=== PATIENT | male | born 1970 | race Caucasian/White ===

== ENCOUNTER 2024-10-30 04:21 | Emergency (ER) | payer OTHER, SELFPAY ==
--- NOTE | ~2024-10-30 | XR_ITS ---
Portable chest x-ray Comparison: None Clinical History: Syncope Findings: Lungs are clear, without focal consolidation or pleural effusion. Cardiomediastinal silho uette is unremarkable. Bones and soft tissues are unremarkable. Impression: Normal chest. Reviewed, dictated and finalized at location . [employer]ESS SALES EXPERT Impression: Normal chest.
[2024-10-30 04:18] VITALS: BP 90/46; PULSE 86; RESP 15; TEMP 37.7; O2SAT 94
--- NOTE | 2024-10-30 04:25 | ECG_ITS ---
Test Date: 2024-10-30 04:24:58 Measurements Intervals [place] Rate: 81 P: 55 [place]: 166 QRS: 31 QRSD: 93 T: 44 QT: 340 QTc: 397 Interpretive Statements SINUS RHYTHM POSSIBLE LEFT ATRIAL ENLARGEMENT [-0.1mV P WAVE IN V1/V2] No previous ECG available for comparison Electronically Signed On 10-30-2024 22:50:38 [employer]ESSOR [employer] by Chris Rodas M.D.
[2024-10-30 04:35] LABS: Basophils Percent Auto 0.4 % (0.2-1.2); Eosinophils Absolute Auto 0.1 K/mm3 (0-0.3); Eosinophils Percent Auto 1.1 % (0-4.4); Hematocrit 42.7 % (42.0-52.0); Hemoglobin 14.3 g/dL (14.0-18.0); Immature Granulocyte Absolute 0.02 K/mm3 (0.00-0.031); Immature Granulocyte Percent A 0.4 % (0-0.5); Lymphocytes Absolute Auto 1.12 K/mm3 (0.9-3.2); Lymphocytes Percent Auto 19.8 % (18.3-44.2); Mean Corpuscular HGB Conc 33.5 g/dl (32-36); Mean Corpuscular Hemoglobin 31.2 pg (26-34); Mean Corpuscular Volume 93.2 fl (80-100); Mean Platelet Volume 9.9 fl (7.4-10.4); Monocytes Absolute Auto 0.8 K/mm3 (0.1-0.6); Neutrophils Absolute Auto 3.7 K/mm3 (1.3-6.7); Neutrophils Percent Auto 64.3 % (45.5-73.1); Platelet Count Result 229 k/mm3 (150-375); Red Blood Count 4.58 M/mm3 (4.6-6.20); Red Cell Distribution Width 12.7 % (11.5-14.5); White Blood Count 5.7 K/mm3 (4.5-10.0)
[2024-10-30] MEDS: KETOROLAC 15 MG/ML VIAL (*BKC) IV PUSH (04:44)
[2024-10-30 04:49] LABS: Alanine Aminotransferase 60 U/L (6-50); Albumin Level 3.9 g/dL (3.5-5.1); Alkaline Phosphatase 72 U/L (38-126); Anion Gap 2 mmol/L (4-12); Aspartate Amino Transferase 56 U/L (17-59); Bilirubin,Total 0.5 mg/dL (0.2-1.3); Blood Urea Nitrogen 11 mg/dL (9-20); Calcium 8.3 mg/dL (8.4-10.2); Carbon Dioxide 28 mmol/L (22-30); Chloride 104 mmol/L (98-107); Estimated CRCL calculation 52 ml/min; Estimated Glomerular Filt Rate 53; Glucose 139 mg/dL (65-110); Potassium 4.2 mmol/L (3.4-5.0); Sodium 134 mmol/L (137-145)
[2024-10-30] MEDS: SODIUM CHLORIDE 0.9% IV 1,000 ML 999 ML IV CONT ×2 (04:51)
[2024-10-30] MEDS: SODIUM CHLORIDE 0.9% IV 200 ML 999 ML IV CONT (04:52)
--- NOTE | 2024-10-30 05:03 | ED.GENADULT ---
HPI - General Adult General Chief complaint: Syncope Stated complaint: UNWITNESSED SYNCOPAL EPISODE, +LOC Time Seen by Provider: 10/30/24 04:30 History of Present Illness HPI narrative: This is a 54-year-old male presenting ED with chief complaint of syncope. Patient has been having a febrile illness over the last 2 days. He has had decreased oral intake and loose stools. Patient got up to go to the restroom and fainted. His family heard a thud from the other room and found him on the ground. That time he had soiled his pants. He quickly returned to baseline mental status but an ambulance was called and he was brought to the hospital. Patient says he has been feeling ill for 3 days. Two days ago he developed a fever And body aches. No chest pain difficulty breathing abdominal pain nausea or vomiting. No sick contacts at home. He has had his flu an COVID shot Related Data Allergies Allergy/AdvReac Type Severity Reaction Status Date / Time No Known Allergies Allergy Verified 10/30/24 04:29 Exam Narrative: APPEARANCE: No apparent distress. Head: atraumatic. EYES: EOMI, NOSE: Atraumatic NECK: Trachea midline RESPIRATORY: No increased rate of breathing clear auscultation CARDIOVASCULAR: RRR, no peripheral edema ABDOMINAL: Non-distended soft nontender MUSCULOSKELETAl: No obvious deformities NEURO: Alert. Moving 4/4 extremities SKIN:: Warm, dry. Normal color PSYCHIATRIC: Normal affect Course Vital Signs Vital signs: Vital Signs Temperature 99.9 F H 10/30/24 04:18 Pulse Rate 86 10/30/24 04:18 Respiratory Rate 15 10/30/24 04:18 Blood Pressure 90/46 L 10/30/24 04:18 Pulse Oximetry 94 10/30/24 04:18 Oxygen Delivery Room Air 10/30/24 04:18 Temperature 99.9 F H 10/30/24 04:18 Pulse Rate 95 10/30/24 07:01 Respiratory Rate 15 10/30/24 07:01 Blood Pressure 134/88 10/30/24 07:01 Pulse Oximetry 97 10/30/24 07:01 Oxygen Delivery Room Air 10/30/24 04:18 Medical Decision Making [facility] Narrative Medical decision making narrative: -Course: 54-year-old male presenting with syncopal episode in the setting of a febrile illness. Patient given fluid resuscitation with improvement blood pressure. Given Toradol for fevers. Workup significant for influenza A. Patient has had symptoms for 72 hours is not a candidate for Tamiflu. On re-evaluation patient is feeling much better. He is comfortable going home at this time. Patient will be discharged follow-up with primary care physician. Given return precautions. -DDX includes but is not limited to: Dehydration, viral illness, sepsis, UTI, dehydration, pneumonia, flu, COVID -Independent interpretation of studies: labs and imaging reviewed Independent EKG interpretation: Rhythm [sinus], Rate [81], [place] -[normal], [place] -[normal], QRS [narrow], QTC [normal], T waves -[negative for concerning inversions], ST Segments - [Negative for concerning elevations] Final interpretations: [Normal Sinus Rhythm] -Interventions: 3 L normal saline, Toradol -Shared decision making / Disposition: discharge Vital Signs Vital Signs: Vital Signs Temperature 99.9 F H 10/30/24 04:18 Pulse Rate 86 10/30/24 04:18 Respiratory Rate 15 10/30/24 04:18 Blood Pressure 90/46 L 10/30/24 04:18 Pulse Oximetry 94 10/30/24 04:18 Oxygen Delivery Room Air 10/30/24 04:18 Temperature 99.9 F H 10/30/24 04:18 Pulse Rate 95 10/30/24 07:01 Respiratory Rate 15 10/30/24 07:01 Blood Pressure 134/88 10/30/24 07:01 Pulse Oximetry 97 10/30/24 07:01 Oxygen Delivery Room Air 10/30/24 04:18 Lab Data 10/30/24 04:28 10/30/24 04:28 Labs: Lab Results 10/30/24 Range/Units 04:28 WBC 5.7 (4.5-10.0) K/mm3 RBC 4.58 L (4.6-6.20) M/mm3 Hgb 14.3 (14.0-18.0) g/dL Hct 42.7 (42.0-52.0) % MCV 93.2 (80-100) fl MCH 31.2 (26-34) pg MCHC 33.5 (32-36) g/dl RDW 12.7 (11.5-14.5) % Plt Count 229 (150-375) k/mm3 MPV 9.9 (7.4-10.4) fl Immature Gran % (Auto) 0.4 (0-0.5) % Neut % (Auto) 64.3 (45.5-73.1) % Lymph % (Auto) 19.8 (18.3-44.2) % Bertie % (Auto) 14.0 H (2.6-8.5) % Eos % (Auto) 1.1 (0-4.4) % Baso % (Auto) 0.4 (0.2-1.2) % Lymph # (Auto) 1.12 (0.9-3.2) K/mm3 Bertie # (Auto) 0.8 H (0.1-0.6) K/mm3 Eos # (Auto) 0.1 (0-0.3) K/mm3 Baso # (Auto) 0.0 (0.0-0.1) K/mm3 Abs Immat Gran (auto) 0.02 (0.00-0.031) K/mm3 Absolute Neuts (auto) 3.7 (1.3-6.7) K/mm3 Absolute Nucleated RBC 0.000 (0.0-0.012) K/mm3 Nucleated RBC % 0.0 (0.0-0.2) % Sodium 134 L (137-145) mmol/L Potassium 4.2 (3.4-5.0) mmol/L Chloride 104 (98-107) mmol/L Carbon Dioxide 28 (22-30) mmol/L Anion Gap 2 L (4-12) mmol/L BUN 11 (9-20) mg/dL Creatinine 1.40 H (0.7-1.3) mg/dL Estim Creat Clear Calc 52 ml/min Estimated GFR 53 L (59 - ) Glucose 139 H (65-110) mg/dL Calcium 8.3 L (8.4-10.2) mg/dL Total Bilirubin 0.5 (0.2-1.3) mg/dL AST 56 (17-59) U/L ALT 60 H (6-50) U/L Alkaline Phosphatase 72 (38-126) U/L Total Protein 6.0 L (6.3-8.2) g/dL Albumin 3.9 (3.5-5.1) g/dL Influenza A (RT-PCR) Positive A (Negative) Influenza B (RT-PCR) Negative (Negative) RSV (RT-PCR) Negative (Negative) SARS-CoV-2 RNA (RT-PCR) Negative (Negative) Discharge Plan Discharge Clinical Impression: Syncope due to orthostatic hypotension, Flu Patient Disposition: Home, Self-Care Condition: Stable Instructions: Antibiotic Form, Syncope (DC), Influenza (DC) Additional Instructions: You have the flu. Please make sure you are drinking plenty of fluids. Use Motrin and Tylenol for fevers and body aches. Please be careful when he stand up if your prone to fainting. You can return to the ED at any time if you develop chest pain difficulty breathing feel your condition is getting worse. Patient Language: Luxembourgish
[2024-10-30 05:11] LABS: Influenza A QL RT-PCR Positive (Negative); Influenza B QL RT-PCR Negative (Negative); RSV RNA, RT-PCR Negative (Negative); SARS-CoV-2 RNA PCR Negative (Negative)
[2024-10-30 05:46] VITALS: BP 120/72; PULSE 88; RESP 15; O2SAT 94
[2024-10-30 07:01] VITALS: BP 134/88; PULSE 95; RESP 15; O2SAT 97
[2024-10-30 07:49] VITALS: BP 128/73; PULSE 90; RESP 20; O2SAT 95
--- OUTSIDE RECORDS SUMMARY | 2024-11-06 03:33 | XMS_ITS | Encounter Summary ---
Author Organization [facility] Address [address] [place] [address] Phone Care Team Providers Care Handmade Tile Artist Name Role Phone Redd Bond MD Primary Care Provider Reason for Visit * Reason Comments Physical Encounter Details Date Type Department Care Team (Late st Contact Info) Description 05/18/2012 9:20 AM PDT Office Visit [facility] [address] [facility] [address] [place] [phone] Redd Bond MD [address] [facility] FLO[address] [place], [place] [id number] Well adult exam; History of syncope; Right knee pain Social History Tobacco Use Types Packs/Day Years Used Date Smoking Tobacco: Never Alcohol Use Standard Drinks/Week Comments Yes 0 (1 standard drink = 0.6 oz pur e alcohol) social. Sex and Gender Information Value Date Recorded Sex Assigned at Not on file Legal Sex Male 11:49 PM PDT Gender Identity Not on file Sexual Orientation Not on file documented as of this encounter Last Filed Vital Signs Vital Sign Reading Time Taken Comments Blood Pressure 123/68 05/18/2012 10:08 AM PDT Pulse 72 05/18/2012 10:08 AM PDT Temperature 36.9 ??C (98.4 ??F) 05/18/2012 10:08 AM P DT Respiratory Rate - - Oxygen Saturation - - Inhaled Oxygen Concentration - - Weight 64.4 kg (142 lb) 05/18/2012 10:08 AM PDT Height 170.2 cm (5' 7 ) 05/18/2012 10:08 AM PDT Body Mass Index 22.24 05/18/2012 10:08 AM PDT documented in this encounter Progress Notes * Redd Bond MD - 05/18/2012 10:59 AM PDT Patient ID: David Fairchild is a 42 year old male Chief Complaint: Chief Complaint Patient presents with ??? Physical HPI: 1m ago fainted at work. Had a busy weekend just prior. Had syncope.. This occurred 4w ago.. Eval.. bp was ok.. Neg jean-baptiste. hasnt occurred since. No chest pain prior. No palpitations. r knee pain with running for several years. No buckling. Gets sore.. No swelling. ROS: General ROS: negative Ophthalmic ROS: negative ENT ROS: negative Respiratory ROS: no cough, shortness of breath, or wheezing Cardiovascular ROS: no chest pain or dyspnea on exertion Gastrointestinal ROS: no abdominal pain, change in bowel habits, or black or bloody stools Genito-Urinary ROS: no dysuria, trouble voiding, or hematuria Musculoskeletal ROS: negative Dermatological ROS: negative Neurological ROS: no TIA or stroke symptoms Psychological ROS: negative No outpatient prescriptions prior to encounter No Known Allergies Past Medical History Diagnosis Date ??? NO SIGNIFICANT MEDICAL PROBLEMS Past Surgical History Procedure Date ??? Past surgical history - none reported History Social History ??? Marital Status: N/A Spouse Name: N/A Number of Children: N/A ??? Years of Education: N/A Occupational History ??? Not on file. Social History Main Topics ??? Smoking status: Never Smoker ??? Smokeless tobacco: Not on file ??? Alcohol Use: Yes social. ??? Drug Use: No ??? Sexually Active: Not on file PHYSICAL EXAM: BP 123/68 Pulse 72 Temp(Src) 98.4 ??F (36.9 ??C) (Oral) Ht 5' 7 (1.702 m) Wt 142 lb (64.411 kg) BMI 22.24 kg/m2 General appearance - alert, well appearing, and in no distress Mental status - alert, oriented to person, place, and time Eyes - pupils equal and reactive, extraocular eye movements intact Ears - bilateral TM's and external ear canals normal Nose - normal and patent, no erythema, discharge or polyps Mouth - mucous membranes moist, pharynx normal without lesions Neck - supple, no significant adenopathy Lymphatics - no palpable lymphadenopathy, no hepatosplenomegaly Chest - clear to auscultation, no wheezes, rales or rhonchi, symmetric air entry Heart - normal rate, regular rhythm, normal S1, S2, no murmurs, rubs, clicks or gallops Abdomen - soft, nontender, nondistended, no masses or organomegaly Male - no penile lesions or discharge, no testicular masses or tenderness, no hernias Back exam - full range of motion, no tenderness, palpable spasm or pain on motion Neurological - alert, oriented, normal speech, no focal findings or movement disorder noted Musculoskeletal - no joint tenderness, deformity or swelling Extremities - peripheral pulses normal, no pedal edema, no clubbing or cyanosis Skin - normal coloration and turgor, no rashes, no suspicious skin lesions noted Impression and Plan: Diagnoses and associated orders for this visit: Well adult exam - CBC with Differential - Metabolic Panel, Comprehensive (CMP) - Lipid Panel - Thyroid Stimulating Hormone (TSH) Reflex to Free T4 - Urinalysis w/ Microscopy - EKG, 12 LEADS W/INTERPRETATION AND REPORT - XRAY Knee 2 Views Ap Lateral Right History of syncope - CBC with Differential - Metabolic Panel, Comprehensive (CMP) - Lipid Panel - Thyroid Stimulating Hormone (TSH) Reflex to Free T4 - Urinalysis w/ Microscopy - EKG, 12 LEADS W/INTERPRETATION AND REPORT - XRAY Knee 2 Views Ap Lateral Right Right knee pain - CBC with Differential - Metabolic Panel, Comprehensive (CMP) - Lipid Panel - Thyroid Stimulating Hormone (TSH) Reflex to Free T4 - Urinalysis w/ Microscopy - EKG, 12 LEADS W/INTERPRETATION AND REPORT - XRAY Knee 2 Views Ap Lateral Right nl ekg Instructed on monthly self testicular exam documented in this encounter Plan of Treatment Scheduled Orders Name Type Priority Associated Diagnoses Orde r Schedule XRAY KNEE 2 VIEWS AP LATERAL RIGHT Imaging Routine Well adult exam History of syncope Right knee pain Ordered: 05/18/2012 documented as of this encounter Procedures Procedure Name Priority Date/Time Associated Diagnosis Comments THYROID STIMULATING HORMONE (TSH) REFLEX ON ABNORMAL TO FREE T4 Routine 05/18/2012 11:38 AM PDT Well adult exam History of syncope Right knee pain CBC WITH DIFFERENTIAL Routine 05/18/2012 11:38 AM PDT Well adult exam History of syncope Right knee pain URINALYSIS W/ MICROSCOPY Routine 05/18/2012 11:38 AM PDT Well adult exam History of syncope Right knee pain LIPID PANEL Routine 05/18/2012 11:38 AM PDT Well adult exam History of syncope Right knee pain METABOLIC PANEL, COMPREHENSIVE (CMP) Routine 05/18/2012 11:38 AM PDT Well adult exam History of syncope Right knee pain documented in this encounter Results * URINALYSIS W/ MICROSCOPY (05/18/2012 11:38 AM PDT) Specific [place], UA 1.011 1.005 - 1.030 [facility] pH, UA 7.0 5.0 - 7.5 [facility] Color, UA Yellow Yellow [facility] Appearance, UA Clear Clear [facility] Leukocyte Esterase, UA Negative Negative [facility] Protein, UA Negative Negative/Tra ce [facility] Glucose, UA Negative Negative [facility] Ketones, UA Negative Negative [facility] Blood, UA Negative Negative [facility] Bilirubin, UA Negative Negative [facility] Urobilinogen, Semi-Qn 0.2 0.0 - 1.9 mg/dL [facility] Nitrite, UA Negative Negative [facility] Microscopic Examination Comment [facility] Comment: Microscopic follows if indicated. Microscopic Examination See below: [facility] Urine (URINE) 05/18/2012 11: 38 AM PDT 05/19/2012 5:41 AM PDT Narrative [facility] - 05/19/2012 1:09 PM PDT PATIENT WAS FASTING [id number] test performed at [facility] [address], [place], [address] Facilty Phone number: Facility Director name:Priscila Posada MD us Redd Bond MD URINALYSIS ORDERABLES Final Res ult [facility] [address] [place] [address] * THYROID STIMULATING HORMONE (TSH) REFLEX ON ABNORMAL TO FREE T4 (05/18/2012 11:38 AM PDT) TSH 3.070 0.450 - 4.500 uIU/mL [facility] Blood (BLOOD) 05/18/2012 11: 38 AM PDT 05/19/2012 5:41 AM PDT Narrative [facility] - 05/19/2012 11:06 AM PDT PATIENT WAS FASTING [id number] test performed at [facility] [address], [place], [address] Facilty Phone number: Facility Director name:Priscila Posada MD Redd Bond MD CHEMISTRY ORDERABLES Final Resu lt [facility] [address] [place] [address] * (ABNORMAL) LIPID PANEL (05/18/2012 11:38 AM PDT) Cholesterol 246(H) 100 - 199 mg/dL [facility] Triglycerides 74 0 - 149 mg/dL [facility] HDL Cholesterol 77 >39 mg/dL [facility] Comment: According to ATP-III Guidelines, HDL-C >59 mg/dL is considered a negative risk factor for CHD. VLDL Cholesterol 15 5 - 40 mg/dL [facility] LDL Calculated 154(H) 0 - 99 mg/dL [facility] Cholesterol/HDL Ratio 3.2 0.0 - 5.0 ratio units [facility] Blood, Venous (BLOOD) 05/18/2012 11:38 AM PDT 05/19/2012 5:41 AM PDT Narrative [facility] - 05/19/2012 11:06 AM PDT PATIENT WAS FASTING [id number] test performed at [facility] [address], [place], [address] Facilty Phone number: Facility Director name:Priscial Posada MD Redd Bond MD CHEMISTRY ORDERABLES Final Resu lt Performing Organization Address [facility]/ZIP Co de Phone Number [facility] [address] [facility] [address] [place] [address] * (ABNORMAL) METABOLIC PANEL, COMPREHENSIVE (CMP) (05/18/2012 11:38 AM PDT) Glucose 90 65 - 99 mg/dL [facility] Urea Nitrogen 11 6 - 24 mg/dL [facility] Creatinine 1.01 0.76 - 1.27 mg/dL [facility] eGFR 93 >59 mL/min/1. 73 [facility] eGFR AfricanAmerican 107 >59 mL/min/1. 73 [facility] BUN/Creatinine Ratio 11 9 - 20 [facility] Sodium 142 134 - 144 mmol/L [facility] Potassium 5.3(H) 3.5 - 5.2 mmol/L [facility] Chloride 101 97 - 108 mmol/L [facility] Carbon Dioxide 26 20 - 32 mmol/L [facility] Calcium, Serum 9.7 8.7 - 10.2 mg/dL [facility] Total Protein 7.1 6.0 - 8.5 g/dL [facility] Albumin 4.5 3.5 - 5.5 g/dL [facility] Globulin 2.6 1.5 - 4.5 g/dL [facility] A/G Ratio 1.7 1.1 - 2.5 [facility] Bilirubin, Total 0.6 0.0 - 1.2 mg/dL [facility] Alkaline Phosphatase 61 25 - 150 IU/L [facility] AST 22 0 - 40 IU/L [facility] ALT 24 0 - 55 IU/L [facility] Blood (BLOOD) 05/18/2012 11: 38 AM PDT 05/19/2012 5:41 AM PDT Narrative [facility] - 05/19/2012 11:06 AM PDT PATIENT WAS FASTING [id number] test performed at [facility] [place] [address] [facility] [address] [address], [place], [address] Facilty Phone number: Facility Director name:Priscila Posada MD us Redd Bond MD CHEMISTRY ORDERABLES Final Resu lt Performing Organization Address City/[facility]/ZIP Co de Phone Number [facility] [address] [place] [address] * CBC WITH DIFFERENTIAL (05/18/2012 11:38 AM PDT) WBC 5.6 4.0 - 10.5 x10E3/uL [facility] RBC 5.10 4.14 - 5.80 x10E6/uL [facility] Hemoglobin 15.5 12.6 - 17.7 g/dL [facility] Hematocrit 46.9 37.5 - 51.0 % [facility] MCV 92 79 - 97 fL [facility] MCH 30.4 26.6 - 33.0 pg [facility] MCHC 33.0 31.5 - 35.7 g/dL [facility] RDW 13.3 12.3 - 15.4 % [facility] Platelet Count 253 140 - 415 x10E3/uL [facility] Polys 44 40 - 74 % [facility] Lymphocytes 43 14 - 46 % [facility] Monocytes 10 4 - 13 % [facility] Eosinophils 2 0 - 7 % [facility] Basophils 1 0 - 3 % [facility] Immature Cells (*) [facility] Polys, Absolute 2.4 1.8 - 7.8 x10E3/uL [facility] Lymphocytes, Absolute 2.5 0.7 - 4.5 x10E3/uL [facility] Monocytes, Absolute 0.5 0.1 - 1.0 x10E3/uL [facility] Eosinophils, Absolute 0.1 0.0 - 0.4 x10E3/uL [facility] Basophils, Absolute 0.0 0.0 - 0.2 x10E3/uL [facility] Immature Granulocytes 0 0 - 2 % [facility] Immature Granulocytes, Absolute 0.0 0.0 - 0.1 x10E3/uL [facility] NRBC (*) [facility] Comments (*) [facility] Blood, Venous (BLOOD) 05/18/2012 11:38 AM PDT 05/19/2012 5:41 AM PDT Narrative [facility] - 05/19/2012 9:07 AM PDT PATIENT WAS FASTING [id number] test performed at [facility] [address], [place], [address] Facilty Phone number: Facility Director name:Priscila Posada MD (*) RESULT NOT AVAILABLE: Immature Cells, NRBC, Hematology Comments: us Redd Bond MD HEMATOLOGY ORDERABLES Final Res ult [facility] [address] [place] [address] documented in this encounter Visit Diagnoses Diagnosis Well adult exam Routine general medical examination at a health care facility History of syncope Personal history of other specified diseases Right knee pain Pain in joint, lower leg documented in this encounter Care Teams Handmade Tile Artist Relationship Specialty Start Date End Date Redd Bond MD [address] [facility], [address] FLOOR [address] [place], [place] [phone] PCP - General 04/14/12 documented as of this encounter
--- OUTSIDE RECORDS SUMMARY | 2024-11-06 03:33 | XMS_ITS | Encounter Summary ---
Author Organization [facility] Address [address] [address] Care Team Providers Care Painting Department Supervisor Name Role Phone Petrona Felix MD Primary Care Pr ovider Reason for Visit * Reason Onset Date Comments Results 10/11/2022 Encounter Details Date Type Department Care Team (Late st Contact Info) Description 10/11/2022 Telephone [facility] Internal Medicine [place] [address] [place] [phone] Petrona Felix MD [address] [place] [address] Results Social History Tobacco Use Types Packs/Day Years Used Date Smoking Tobacco: Never Smokeless Tobacco: Never Alcohol Use Standard Drinks/Week Comments Yes 10 (1 standard drink = 0.6 oz pu re alcohol) Sex and Gender Information Value Date Recorded Sex Assigned at Not on file Legal Sex Male 3:09 AM PDT Gender Identity Not on file Sexual Orientation Not on file documented as of this encounter Miscellaneous Notes * Telephone Encounter - Dee Araiza - 10/11/2022 11:40 AM PST Called and spoke to patient Scheduled virtual 10/18/2022 9:40 AM Petrona Felix MD Electronically signed by: Dee Araiza 10/11/2022 11:41 AM PST * Telephone Encounter - Dee Araiza - 10/11/2022 11:39 AM PST ----- Message from Petrona Felix MD sent at 10/11/2022 6:45 AM PST ----- Please schedule an appointment - Video visit through zoom if possible to discuss the results of thehigh cholesterol You have mild allergies to hazelnut and chadian thistle and olive tress. Please take over the counter medication documented in this encounter Plan of Treatment Not on file documented as of this encounter Visit Diagnoses Not on filedocumented in this encounter Additional Health Concerns Assessment Noted Time PHQ-9 Depression Total Score: 4 10/01/20 11:36 AM PST documented as of this encounter Care Teams Painting Department Supervisor Relationship Specialty Start Date End Date Petrona Felix MD [address] [place] [address] PCP - General Family Medicine 10/01/22 documented as of this encounter
--- OUTSIDE RECORDS SUMMARY | 2024-11-06 03:33 | XMS_ITS | Encounter Summary ---
Author Organization [facility] Address [address] [address] Care Team Providers Care Mixer Operator Vacuum Pan Salt Name Role Phone Petrona Felix MD Primary Care Pr ovider Encounter Details Date Type Department Care Team (Late st Contact Info) Description 10/11/2022 Infectious Risk Screen [facility] Internal Medicine [address] [phone] Social History Tobacco Use Types Packs/Day Years [...] on file documented as of this encounter Plan of Treatment Not on file documented as of this encounter Visit Diagnoses Not on filedocumented in this encounter Additional Health Concerns Assessment Noted Time PHQ-9 Depression Total Score: 4 10/01/20 22 11:36 AM PST documented as of this encounter Care Teams Mixer Operator Vacuum Pan Salt Relationship Specialty Start Date End Date Petrona Felix MD [address] [place] [address] PCP - General Family Medicine 10/01/22 documented as of this encounter
--- OUTSIDE RECORDS SUMMARY | 2024-11-06 03:33 | XMS_ITS | Encounter Summary ---
Author Organization [facility] Address [address] [address] Care Team Providers Care Tanning Consultant Name Role Phone Petrona Felix MD Primary Care Pr ovider Reason for Visit * Reason Comments Annual Exam Encounter Details Date Type Department Care Team (Late st Contact Info) Description 12/20/2023 9:20 AM PST Office Visit [facility] [place] [address] [phone] Petrona Felix MD [address] [place] [address] Annual physical exam (Primary Dx); Vitamin D deficiency; Hypercholesterolemia; Chronic cough Social History Tobacco Use Types Packs/Day Years Used Date Smoking Tobacco: Never Smokeless Tobacco: Never Alcohol Use Standard Drinks/Week Comments Yes 10 (1 standard drink = 0.6 oz pu re alcohol) PHQ-2 Answer Date Recorded PHQ-2 Total Score 0 12/19/2023 Alcohol Use History Answer Date Recorde d Alcohol use Yes 02/04/2023 Alcohol/week (standard drinks) 10 0 02/04/2023 Sex and Gender Information Value Date Recorded Sex Assigned at Not on file Legal Sex Male 3:09 AM PDT Gender Identity Not on file Sexual Orientation Not on file documented as of this encounter Last Filed Vital Signs Vital Sign Reading Time Taken Comments Blood Pressure 116/78 12/20/2023 9:19 AM PST Pulse 102 12/20/2023 9:19 AM PST Temperature - - Respiratory Rate - - Oxygen Saturation 98% 12/20/2023 9:19 AM PST Inhaled Oxygen Concentration - - Weight 74.8 kg (165 lb) 12/20/2023 9:19 AM PST Height 169 cm (5' 6.54 ) 12/20/2023 9:19 AM PST Body Mass Index 26.21 12/20/2023 9:19 AM PST documented in this encounter Progress Notes * Petrona Felix MD - 12/20/2023 9:[address] [facility] [place] - HISTORY AND PHYSICAL EXAM Patient Name: David Fairchild (Tom) Age: 53 y.o. : 1970 Author: Petrona Felix MD Date of Encounter: 12/20/2023 CHIEF COMPLAINT: David Fairchild (Tom) is a 53 y.o. male who presents for annual physical. HPI: David Fairchild (Tom) is a 53 y.o. male who presents with Annual Exam ASSESSMENT & PLAN: 1. Annual physical exam (Primary) - Basic Metabolic Panel; Future - CBC with Differential; Future - Hemoglobin A1C; Future - Hepatic Function Panel; Future - Lipid Panel; Future - Phosphorus; Future - TSH; Future - Urinalysis With Microscopic; Future; Expected date: 12/20/2023 - Culture, Urine; Future; Expected date: 12/20/2023 - Vitamin D, Deficiency Screen (25-Hydroxy); Future - PSA, Screen; Future - Testosterone, Total and Free; Future - HIV AG/AB, 4th Gen, Reflex; Future - Occult Blood, Fecal Immunochemical Test (FIT); Future; Expected date: 12/20/2023 2. Vitamin D deficiency - Basic Metabolic Panel; Future - CBC with Differential; Future - Hemoglobin A1C; Future - Hepatic Function Panel; Future - Lipid Panel; Future - Phosphorus; Future - TSH; Future - Urinalysis With Microscopic; Future; Expected date: 12/20/2023 - Culture, Urine; Future; Expected date: 12/20/2023 - Vitamin D, Deficiency Screen (25-Hydroxy); Future - PSA, Screen; Future - Testosterone, Total and Free; Future - HIV AG/AB, 4th Gen, Reflex; Future - Occult Blood, Fecal Immunochemical Test (FIT); Future; Expected date: 12/20/2023 3. Hypercholesterolemia - Basic Metabolic Panel; Future - CBC with Differential; Future - Hemoglobin A1C; Future - Hepatic Function Panel; Future - Lipid Panel; Future - Phosphorus; Future - TSH; Future - Urinalysis With Microscopic; Future; Expected date: 12/20/2023 - Culture, Urine; Future; Expected date: 12/20/2023 - Vitamin D, Deficiency Screen (25-Hydroxy); Future - PSA, Screen; Future - Testosterone, Total and Free; Future - HIV AG/AB, 4th Gen, Reflex; Future - Occult Blood, Fecal Immunochemical Test (FIT); Future; Expected date: 12/20/2023 4. Chronic cough Assessment & Plan: After infection in Dec Will keep me posted is worsening FOLLOW UP: After care instructions & AVS given. No follow-ups on file. Sooner if necessary, or as discussed. Care instructions and warning signs were discussed. Medications per orders. Side effects discussed.All pertinent labs, studies & exam findings were reviewed today and discussed with patient. Patient expresses understanding of assessment & plan. All questions answered. ACTIVE PROBLEMS: Patient Active Problem List Diagnosis Depression Annual physical exam Postnasal drip Deviated septum Snoring Hypercholesterolemia Vitamin D deficiency Positive allergy test Cough PAST MEDICAL HISTORY: He has a past medical history of Depression. PAST SURGICAL HISTORY: He has no past surgical history on file. FAMILY HISTORY: His family history includes Hypertension in his father; Stroke in his father. SOCIAL HISTORY: reports that he has never smoked. He has never used smokeless tobacco. He reports current alcohol use of about 10.0 standard drinks of alcohol per week. MEDICATIONS: No outpatient medications prior to visit. No facility-administered medications prior to visit. Patient's Medications No medications on file : ALLERGIES: Food LOREE MAINTENANCE: Preventative Services TOPIC LAST DONE NEXT DUE Cologuard 02/07/1990 Fit 02/07/1990 Ct Colonography 02/07/1990 Hepatitis C Screening 10/07/2022 Human Immunodeficiency Virus (Hiv) Screening 02/07/1987 Vaccine: Influenza 08/17/2023 Sigmoidoscopy 02/07/1990 Colonoscopy 02/07/1990 Covid-19 Vaccine 08/17/2023 Vaccine: Dtap/Tdap/Td 02/07/1991 Vaccine: Zoster 02/07/2022 Colorectal Combination Topic 02/07/1990 IMMUNIZATIONS: Immunization History Administered Date(s) Administered COVID-19 (MODERNA) 12 YRS+, 0.5 ML (2022) 08/17/2023 COVID-19 (MODERNA) MONOVALENT 12 YRS+ 02/13/2021, 03/13/2021, 10/07/2021 INFLUENZA PF, QUADRIVALENT 09/04/2021 INFLUENZA W/PRES QUADRIVALENT 08/04/2020 CARE TEAM: Patient Care Team: Petrona Felix MD as PCP - General (Family Medicine) REVIEWED LAB(S): No results found for this or any previous visit (from the past 1344 hour(s)). REVIEW OF SYMPTOMS: 12/19/2023 8:48 PM Date of Last Screening PHQ-2 Total Score 0 [place] PHQ-2 Total Negative @REVFS(896:1:1) PHYSICAL EXAM: VITAL SIGNS: BP 116/78 Pulse 102 Ht 1.69 m (5' 6.54 ) Wt 74.8 kg (165 lb) SpO2 98% BMI 26.21 kg/m?? Blood pressure, heart rate and temperature reviewed. General: Well developed, well nourished male in no distress. Appears oriented x 4. Insight and judgment intact. HEENT: Normocephalic, ears and nose - atraumatic. No lid-lag. No pale or injected conjunctiva. EOMI, PERRLA. No cervical adenopathy. Neck: Full range of motion with flexion and extension of the cervical spine. No JVD or adenopathy. Thyroid without enlargement, tenderness or masses. Lungs: Clear to auscultation and percussion. No wheezes, rales or rhonchi. Normal respiratory effort. Cardiac: Regular rate and rhythm without murmurs. Peripheral Pulses: 3/4 in the carotids and dorsalis pedis vessels. No carotid bruits. Abdomen: Soft, nontender, nondistended with positive active bowel sounds. No hepatosplenomegaly. Extremities: No clubbing, cyanosis or edema in the pretibial or ankle regions. No inguinal adenopathy. Skin: No petechiae or rash. No palpable skin nodules. Petrona Feilx MD documented in this encounter Miscellaneous Notes * Assessment & Plan Note - Petrona Felix MD - 12/20/2023 10:31 AM PSTAssociated Problem(s): Cough After infection in Dec Will keep me posted is worsening documented in this encounter Plan of Treatment Scheduled Orders Name Type Priority Associated Diagnoses Orde r Schedule Occult Blood, Fecal Immunochemical Test (FIT) Lab Routine Annual physical exam Vitamin D deficiency Hypercholesterolemia Expected: 12/20/2023 (Approximate), Expires: 06/19/2025 documented as of this encounter Results * Testosterone, Total and Free (01/04/2024 8:18 AM PST) Testosterone, Total, LC-MS/MS 646 250 - 1100 ng/dL 01/10/2024 3:05 PM PDT REFERENCE LAB [facility] Comment: For additional information, please refer to http://education.Workface/faq/TotalTestosteroneL CMSMS (This link is being provided for informational/educational purposes only.) Testosterone, Free 87.5 35.0 - 155.0 pg/mL 01/10/2024 3:05 PM PDT REFERENCE [facility] Comment: This test was developed and its analytical performance characteristics have been determined by [employer]. It has not been cleared or approved by FDA. This assay has been validated pursuant to the CLIA regulations and is used for clinical purposes. Blood Venipuncture / Unknown 01/04/2024 8:18 AM PST 01/04/2024 10:20 AM PST Narrative REFERENCE LAB [facility] - 01/10/2024 3:05 PM PDT Performing Organization Information: ?Site ID: ?Name: [facility] ?Address: [address] [place] [phone] ?Director: CHRISTIE MOREL MD,PHD,NICK Result [facility] Petrona Felix MD LAB BLOOD ORDERA BLES Final Result REFERENCE LAB [facility] [address] [place] [phone] REFERENCE LAB [address] [phone] * PSA, Screen (12/20/2023 10:16 AM PST) Pathologist [facility] PSA, Total 1.15 < OR = 4.00 ng/mL 12/20/2023 10:46 PM PST REFERENCE LAB [facility] Comment: The total PSA value from this assay system is standardized against the WHO standard. The test result will be approximately 20% lower when compared to the equimolar-standardized total PSA (Dejon Héctor). Comparison of serial PSA results should be interpreted with this fact in mind. This test was performed using the Siemens chemiluminescent method. Values obtained from different assay methods cannot be used interchangeably. PSA levels, regardless of value, should not be interpreted as absolute evidence of the presence or absence of disease. Blood Venipuncture / Unknown 12/20/2023 10:16 AM PST 12/20/2023 11:13 AM PST Narrative REFERENCE LAB [facility] - 12/20/2023 10:46 PM PST Performing Organization Information: ?Site ID: [id number] ?Name: [facility] ?Address: [address] [place] [phone] ?Director: HAYLEE SYLVESTER MD Result [facility] Petrona Felix MD LAB BLOOD ORDERA BLES Final Result REFERENCE LAB [facility] [address] [place] [phone] * Vitamin D, Deficiency Screen (25-Hydroxy) (12/20/2023 10:16 AM PST) 25-Hydroxy D, Total 32 30 - 100 ng/mL 12/20/2023 10:46 PM PST REFERENCE LAB [facility] Comment: Vitamin D Status ? 25-OH Vitamin D: Deficiency: ?<20 ng/mL Insufficiency: ? 20 - 29 ng/mL Optimal: ? > or = 30 ng/mL For 25-OH Vitamin D testing on patients on D2-supplementation and patients for whom quantitation of D2 and D3 fractions is required, the QuestAssureD(TM) 25-OH VIT D, (D2,D3), LC/MS/MS is recommended: order code 52771 (patients >2yrs). See Note 1 Note 1 For additional information, please refer to http://education.Cooleaf/faq/ZDA581 (This link is being provided for informational/ educational purposes only.) Blood Venipuncture / Unknown 12/20/2023 10:16 AM PST 12/20/2023 11:13 AM PST Narrative [facility] - 12/20/2023 10:46 PM PST Performing Organization Information: ?Site ID: EN ?Name: [facility] ?Address: [address] [place] [phone] ?Director: HAYLEE SYLVESTER MD Petrona Felix MD LAB BLOOD ORDERA BLES Final Result REFERENCE LAB [facility] [employer] [address] [phone], [facility] * Culture, Urine (12/20/2023 10:16 AM PST) Pathologist [facility] Urine Culture, Routine SEE NOTE 12/21/2023 8:45 PM PST REFER[facility] Comment: ??CULTURE, URINE, ROUTINE ?Micro Number: ?[id number] ??Test Status: ? Final ??Specimen Source: ?? Urine ??Specimen Quality: ??Adequate ??Result: ?Mixed genital agapito isolated. These superficial ? bacteria are not indicative of a urinary tract ? infection. No further organism identification is ? warranted on this specimen. If clinically ? indicated, recollect clean-catch, mid-stream ? urine and transfer immediately to Urine Culture ? Transport Tube. Urine URINE SPECIMEN OBTAINED BY CLEAN CATCH PROCEDURE / Unknown Collection / Unknown 12/20/2023 10:16 AM PST 12/20/2023 11:52 AM PST Narrative [facility] - 12/21/2023 8:45 PM PST Performing Organization Information: ?Site ID: [id number] ?Name: [facility] ?Address: [address] [place] [address] ?Director: HAYLEE SYLVESTER MD Petrona Felix MD MICROBIOLOGY - G ENERAL ORDERABLES Final Result REFERENCE LAB [facility] [address] [place] [phone] [address] * TSH (12/20/2023 10:16 AM PST) TSH 3.63 0.40 - 4.50 mIU/L 12/20/2023 10:46 PM PST [facility] Blood Venipuncture / Unknown 12/20/2023 10:16 AM PST 12/20/2023 11:13 AM PST Narrative [facility] - 12/20/2023 10:46 PM PST Performing Organization Information: ?Site ID: EN ?Name: [facility] ?Address: [address] [place] [address] ?Director: HAYLEE SYLVESTER MD Petrona Felix MD LAB BLOOD ORDERA BLES Final Result [facility] [address] [place] [address] * HIV AG/AB, 4th Gen, Reflex (12/20/2023 10:15 AM PST) HIV 1/2 Ab and P24 Ag NON-REACT FARSHAD NON-REACT FARSHAD 12/22/2023 6:49 PM PST REFER[facility] LAB [facility] Comment: HIV-1 antigen and HIV-1/HIV-2 antibodies were not detected. There is no laboratory evidence of HIV infection. PLEASE NOTE: This information has been disclosed to you from records whose confidentiality may be protected by state law. ??If your state requires such protection, then the state law prohibits you from making any further disclosure of the information without the specific written consent of the person to whom it pertains, or as otherwise permitted by law. A general authorization for the release of medical or other information is NOT sufficient for this purpose. ?? For additional information please refer to http://education.Welocalize.Spinal [place]/faq/CWY784 (This link is being provided for informational/ educational purposes only.) The performance of this assay has not been clinically validated in patients less than 2 years old. Blood Venipuncture / Unknown 12/20/2023 10:15 AM PST 12/20/2023 11:13 AM PST Narrative REFER[facility] LAB [facility] - 12/22/2023 6:49 PM PST Performing Organization Information: ?Site ID: EN ?Name: [facility] ?Address: [address] [place] [phone] ?Director: HAYLEE SYLVESTER MD Petrona Felix MD LAB BLOOD ORDERA BLES Final Result REFERENCE LAB [facility] [address] [place] [phone] * Urinalysis With Microscopic (12/20/2023 10:15 AM PST) Color, UA YELLOW YELLOW 12/20/2023 8:38 PM PST RE[facility] Clarity, Urine CLEAR CLEAR 12/20/2023 8:38 PM PST REFER[facility] LAB [facility] Specific [place], Urine 1.012 1.001 - 1.035 12/20/2023 8:38 PM PST REFERENCE LAB [facility] [facility] pH, Urine 7.0 5.0 - 8.0 12/20/2023 8:38 PM PST REFERENCE LAB [facility] [facility] Glucose, UA NEGATIVE NEGATIVE 12/20/2023 8:38 PM PST [facility] Bilirubin, UA NEGATIVE NEGATIVE 12/20/2023 8:38 PM PST [facility] Ketones, UA NEGATIVE NEGATIVE 12/20/2023 8:38 PM PST REFERENCE LAB [facility] [facility] Blood, UA NEGATIVE NEGATIVE 12/20/2023 8:38 PM PST REFERENCE LAB [employer] [facility] Protein, UA NEGATIVE NEGATIVE 12/20/2023 8:38 PM PST REFER[facility] LAB [employer] [facility] Nitrite, UA NEGATIVE NEGATIVE 12/20/2023 8:38 PM PST REFER[facility] LAB [facility] [facility] Leukocyte esterase, UA NEGATIVE NEGATIVE 12/20/2023 8:38 PM PST REFER[facility] LAB [facility] [facility] WBC, UA NONE SEEN < OR = 5 /HPF 12/20/2023 8:38 PM PST REFER[facility] LAB [facility] [facility] RBC, UA NONE SEEN < OR = 2 /HPF 12/20/2023 8:38 PM PST [facility] Squamous epithelial, UA NONE SEEN < OR = 5 /HPF 12/20/2023 8:38 PM PST [facility] Bacteria, UA NONE SEEN NONE SEEN /HPF 12/20/2023 8:38 PM PST [facility] Hyaline cast, UA NONE SEEN NONE SEEN /LPF 12/20/2023 8:38 PM PST REFER[facility] LAB [facility] Note: See Below 12/20/2023 8:38 PM PST [facility] Comment: This urine was analyzed for the presence of WBC, RBC, bacteria, casts, and other formed elements. Only those elements seen were reported. Urine Collection / Unknown 12/20/2023 10:15 AM PST 12/20/2023 11:51 AM PST Narrative REFER[facility] LAB [facility] - 12/20/2023 8:38 PM PST Performing Organization Information: ?Site ID: EN ?Name: [facility] ?Address: [address] [place] [address] ?Director: HAYLEE SYLVESTER MD Petrona Felix MD URINE ORDERABLES Final Result [facility] [address] [place] [address] * Phosphorus (12/20/2023 10:15 AM PST) Phosphorus 2.7 2.5 - 4.5 mg/dL 12/21/2023 12:03 AM PST [facility] Blood Venipuncture / Unknown 12/20/2023 10:15 AM PST 12/20/2023 11:13 AM PST Narrative [facility] - 12/21/2023 12:03 AM PST Performing Organization Information: ?Site ID: EN ?Name: [facility] ?Address: [address] [place] [address] ?Director: HAYLEE SYLVESTER MD Petrona Felix MD LAB BLOOD ORDERA BLES Final Result REFER[facility] [address] [place] [phone] * (ABNORMAL) Lipid Panel (12/20/2023 10:15 AM PST) [facility] Cholesterol 274(H) <200 mg/dL 12/21/2023 12:03 AM [facility] REFERENCE LAB [facility] HDL Cholesterol 70 > OR = 40 mg/dL 12/21/2023 12:03 AM [facility] REFERENCE LAB [facility] Triglycerides 120 <150 mg/dL 12/21/2023 12:03 AM [facility] LDL, Calculated 179(H) mg/dL (calc) 12/21/2023 12:03 AM [facility] REFERENCE LAB [facility] Comment: Reference range: <100 Desirable range <100 mg/dL for primary prevention; ?? <70 mg/dL for patients with CHD or diabetic patients with > or = 2 CHD risk factors. LDL-C is now calculated using the Rich-Eli calculation, which is a validated novel method providing better accuracy than the Friedewald equation in the estimation of LDL-C. Rich SS et al. RAFAELA. 2013;310(19): 7794-4487 (http://education.[employer] Group.Spinal [place]/faq/PJH188) Chol/HDL Ratio 3.9 <5.0 (calc) 12/21/2023 12:03 AM [facility] REFERENCE LAB [facility] Non-HDL Cholesterol 204(H) <130 mg/dL (calc) 12/21/2023 12:03 AM [facility] REFERENCE LAB [facility] Comment: For patients with diabetes plus 1 major ASCVD risk factor, treating to a non-HDL-C goal of <100 mg/dL (LDL-C of <70 mg/dL) is considered a therapeutic option. Blood Venipuncture / Unknown 12/20/2023 10:15 AM PST 12/20/2023 11:13 AM PST Narrative REFER[facility] LAB [facility] - 12/21/2023 12:03 AM PST Performing Organization Information: ?Site ID: EN ?Name: [facility] ?Address: [address] [place] [phone] ?Director: HAYLEE SYLVESTER MD Petrona Felix MD LAB BLOOD ORDERA BLES Final Result REFER[facility] LAB [facility] [address] [place] [phone], [place] * Hemoglobin A1C (12/20/2023 10:15 AM PST) [facility] Signature Hemoglobin A1c 5.5 <5.7 % of total Hgb 12/21/2023 12:24 AM [facility] REFERENCE LAB [facility] Comment: For the purpose of screening for the presence of diabetes: <5.7% ? Consistent with the absence of diabetes 5.7-6.4% ?Consistent with increased risk for diabetes ?(prediabetes) > or =6.5% ??Consistent with diabetes This assay result is consistent with a decreased risk of diabetes. Currently, no consensus exists regarding use of hemoglobin A1c for diagnosis of diabetes in children. According to [place] Diabetes Association (ADA) guidelines, hemoglobin A1c <7.0% represents optimal control in non- diabetic patients. Different metrics may apply to specific patient populations. Standards of Medical Care in Diabetes(ADA). ?? Estimated Average Glucose 111 mg/dL 12/21/2023 12:24 AM [facility] REFERENCE LAB [facility] Estimated Average Glucose 6.2 mmol/L 12/21/2023 12:24 AM [facility] REFERENCE [facility] Comment: ? HbA1c performed on David platform. Effective 12/19/23 a change in test platforms may have shifted HbA1c results compared to historical results. Blood Venipuncture / Unknown 12/20/2023 10:15 AM PST 12/20/2023 11:13 AM PST Narrative REFER[facility] LAB [facility] - 12/21/2023 12:24 AM PST Performing Organization Information: ?Site ID: EN ?Name: [facility] ?Address: [address] [place] [phone] ?Director: HAYLEE SYLVESTER MD Petrona Felix MD LAB BLOOD ORDERA BLES Final Result REFER[facility] [address] [place] [phone], [place] * CBC with Differential (12/20/2023 10:15 AM PST) [facility] WBC 5.5 3.8 - 10.8 Thousand/u L 12/21/2023 12:24 AM PST RE[facility] Red Blood Cells 4.70 4.20 - 5.80 Million/uL 12/21/2023 12:24 AM PST [facility] Hemoglobin 14.8 13.2 - 17.1 g/dL 12/21/2023 12:24 AM PST [facility] Hct 42.9 38.5 - 50.0 % 12/21/2023 12:24 AM PST [facility] MCV 91.3 80.0 - 100.0 fL 12/21/2023 12:24 AM PST [facility] MCH 31.5 27.0 - 33.0 pg 12/21/2023 12:24 AM PST REFER[facility] LAB [facility] MCHC 34.5 32.0 - 36.0 g/dL 12/21/2023 12:24 AM PST [facility] RDW 12.7 11.0 - 15.0 % 12/21/2023 12:24 AM PST [facility] Platelet Count 284 140 - 400 Thousand/u L 12/21/2023 12:24 AM PST [facility] MPV 10.5 7.5 - 12.5 fL 12/21/2023 12:24 AM PST [facility] Absolute Neutrophils 3031 1500 - 7800 cells/uL 12/21/2023 12:24 AM PST [facility] Absolute Lymphocytes 1733 850 - 3900 cells/uL 12/21/2023 12:24 AM PST [facility] Absolute Monocytes 550 200 - 950 cells/uL 12/21/2023 12:24 AM PST [facility] Absolute Eosinophils 138 15 - 500 cells/uL 12/21/2023 12:24 AM PST [facility] Absolute Basophils 50 0 - 200 cells/uL 12/21/2023 12:24 AM PST [facility] % Neutrophils 55.1 % 12/21/2023 12:24 AM PST [facility] % Lymphocytes 31.5 % 12/21/2023 12:24 AM PST [facility] % Monocytes 10.0 % 12/21/2023 12:24 AM PST [facility] % Eosinophils 2.5 % 12/21/2023 12:24 AM PST [facility] % Basophils 0.9 % 12/21/2023 12:24 AM PST REFERENCE LAB [facility] Blood Venipuncture / Unknown 12/20/2023 10:15 AM PST 12/20/2023 11:13 AM PST Narrative REFERENCE LAB [facility] - 12/21/2023 12:24 AM PST Performing Organization Information: ?Site ID: [id number] ?Name: [facility] ?Address: [address] [place] [phone] ?Director: HAYLEE SYLVESTER MD Performing Organization Information: ?Site ID: [id number] ?Name: [facility] ?Address: [address] [place] [phone] ?Director: HAYLEE SYLVESTER MD Petrona Felix MD LAB BLOOD AMIRAH BURNETT Edited Result - Final REFERENCE LAB [facility] [address] [place] [address], [facility] * Basic Metabolic Panel (12/20/2023 10:15 AM PST) [facility] Glucose 98 65 - 99 mg/dL 12/21/2023 12:03 AM PST REFERENCE LAB [facility] Comment: ? Fasting reference interval BUN 10 7 - 25 mg/dL 12/21/2023 12:03 AM PST REFERENCE LAB [facility] Creatinine 1.10 0.70 - 1.30 mg/dL 12/21/2023 12:03 AM PST REFERENCE LAB [facility] eGFR 81 > OR = 60 mL/min/1. 73m2 12/21/2023 12:03 AM PST REFERENCE LAB [facility] BUN/Creatinine Ratio SEE NOTE: (calc) 12/21/2023 12:03 AM PST REFERENCE LAB [facility] Comment: ?? Not Reported: BUN and Creatinine are within ?? reference range. ? Sodium 138 135 - 146 mmol/L 12/21/2023 12:03 AM PST REFERENCE LAB [facility] Potassium 4.4 3.5 - 5.3 mmol/L 12/21/2023 12:03 AM PST REFERENCE LAB [facility] Chloride 102 98 - 110 mmol/L 12/21/2023 12:03 AM PST REFERENCE LAB [facility] Carbon dioxide 31 20 - 32 mmol/L 12/21/2023 12:03 AM PST REFERENCE LAB [facility] Calcium 9.5 8.6 - 10.3 mg/dL 12/21/2023 12:03 AM PST REFERENCE LAB [facility] Blood Venipuncture / Unknown 12/20/2023 10:15 AM PST 12/20/2023 11:13 AM PST Narrative REFERENCE LAB [facility] - 12/21/2023 12:03 AM PST Performing Organization Information: ?Site ID: [id number] ?Name: [facility] ?Address: [address] [place] [phone] ?Director: HAYLEE SYLVESTER MD Petrona Felix MD LAB BLOOD ORDERA BLES Final Result REFERENCE LAB [facility] [address] [place] [address] documented in this encounter Visit Diagnoses Diagnosis Annual physical exam- Primary Routine general medical examination at a health care facility Vitamin D deficiency Unspecified vitamin D deficiency Hypercholesterolemia Pure hypercholesterolemia Chronic cough Cough documented in this encounter Additional Health Concerns Assessment Noted Time PHQ-9 Depression Total Score: 4 10/01/20 22 11:36 AM PST PHQ-2 Depression Total Score: 0 12/19/19 24 8:48 PM PST documented as of this encounter Care Teams Tanning Consultant Relationship Specialty Start Date End Date Petrona Felix MD [address] [place] [address] PCP - General Family Medicine 10/01/22 documented as of this encounter
--- OUTSIDE RECORDS SUMMARY | 2024-11-06 03:33 | XMS_ITS | Continuity of Care Document ---
Author Organization [facility] Address [address] [place] [address] Care Team Providers Care Equipment Processor Name Role Phone Finesse Gardiner MD Unavailable Unavailable Procedures Procedure Date Offic/Outpt E&M New Mod Sever 30Min Advance Directives Directive Yes / No Effective Date File Name No Information Encounters Encounter Description Practice Location Reason(s) For Visit Diagnoses Date Provider Providers Copied on Encounter Offic/Outpt E&M New Mod Sever 30Min [facility], [address], [place], [place], [id number], [address] No Information [place]. [address] [facility], [address], [place], [place], [id number], [place]. tel:[phone] Family History Family Member Type Diagnosis Age At Onset No Information Payers Payer name Insurance type Covered republican ID Authoriza timyrna(s) [id number] Social History Type Description Quantity Date Captured Comments Sex Male Smoking Status No Information Chief Complaint And Reason For Visit No Information Reason For Referral Reason For Referral No Information History Of Present Illness Encounter Date Complaint History Of Prese nt Illness No Information Functional Status Date Functional Assessmen t No Information Instructions Date Instruction Additional Infor mation No Information Assessments Type Assessment Date No Information Patient Care Teams Name Effective Dates (start - stop) Status Members No Information
--- OUTSIDE RECORDS SUMMARY | 2024-11-06 03:33 | XMS_ITS | Encounter Summary ---
Author Organization [facility] Address [address] [place] [address] Phone Care Team Providers Care Roof Service Technician Name Role Phone Luan Bond MD Primary Care Provider [phone] Reason for Visit * Reason Onset Date Comments Results 05/24/2012 Encounter Details Date Type Department Care Team (Late st Contact Info) Description 05/24/2012 Telephone [facility] Geriatrics Program [address] [facility] [address] [place] [address] Luan Bond MD [address] [facility] [place] [address] Results Social History Tobacco Use Types Packs/Day [...] encounter Miscellaneous Notes * Telephone Encounter - Farhad Sotelo MA - 05/24/2012 10:35 AM PDT Patient informed test result as indicated on note below. * Telephone Encounter - Farhad Sotelo MA - 05/24/2012 10:31 AM PDT Message copied by FARHAD SOTELO on TueMay 24, 2012 10:31 AM ------ Message from: LUAN BOND Created: Sarah May 23, 2012 11:50 PM Call labs all ok but cholesterol is a bit high.. Need a lower fat diet. We can recheck your cholesterol in 6mths to a year documented in this encounter Plan of Treatment Not on file documented as of this encounter Visit Diagnoses Not on filedocumented in this encounter Care Teams Roof Service Technician Relationship Specialty Start Date End Date Luan Bond MD [address] [facility] [place], [place] [id number] PCP - General 04/14/12 documented as of this encounter
--- OUTSIDE RECORDS SUMMARY | 2024-11-06 03:33 | XMS_ITS | Encounter Summary ---
Author Organization [facility] Address [address] [address] Care Team Providers Care General Counselor Name Role Phone Petrona Felix MD Primary Care Pr ovider Reason for Visit * Reason Comments Consult Positive covid 19 Encounter Details Date Type Department Care Team (Latest Contact Info) Description 06/05/2024 4:00 PM PDT Virtual Office Visit [facility] Internal Medicine [place] [address] [phone] Petrona Felix MD [address] [place] [address] COVID-19 virus infection (Primary Dx); Fever, unspecified fever cause; Sneezing Social History Tobacco Use Types Packs/Day Years [...] on file documented as of this encounter Progress Notes * Petrona Felix MD - 06/05/2024 4:00 PM PDT [facility] INTERNAL MEDICINE JACK PROGRESS NOTE Patient Name: David Fairchild (Tom) Age: 54 y.o. : 1970 Author: Petrona Felix MD Date of Encounter: 06/05/2024 Chief Complaint/HPI: David Fairchild (Tom) is a 54 y.o. male who presents with Consult (Positive covid 19 ) Patient tested positive for COVID at home Patient is complaining of cough, fever, sneezing, Sick contacts at home ASSESSMENT & PLAN: 1. COVID-19 virus infection (Primary) - azithromycin (ZITHROMAX) 250 mg tablet; Take 2 tablets today and 1 tablet each day for 4 more days. Dispense: 6 tablet; Refill: 0 - nirmatrelvir & ritonavir (PAXLOVID) 300 mg & 100 mg per dose tablet pack; Take 3 tablets by mouth 2 times daily Take 2 nirmatrelvir tablets (300 mg) and 1 ritonavir tablet (100 mg) by mouth2 times daily for 5 days. Indications: COVID- 19 infection Dispense: 30 tablet; Refill: 0 2. Fever, unspecified fever cause - azithromycin (ZITHROMAX) 250 mg tablet; Take 2 tablets today and 1 tablet each day for 4 more days. Dispense: 6 tablet; Refill: 0 - nirmatrelvir & ritonavir (PAXLOVID) 300 mg & 100 mg per dose tablet pack; Take 3 tablets by mouth 2 times daily Take 2 nirmatrelvir tablets (300 mg) and 1 ritonavir tablet (100 mg) by mouth2 times daily for 5 days. Indications: COVID- 19 infection Dispense: 30 tablet; Refill: 0 3. Sneezing - azithromycin (ZITHROMAX) 250 mg tablet; Take 2 tablets today and 1 tablet each day for 4 more days. Dispense: 6 tablet; Refill: 0 - nirmatrelvir & ritonavir (PAXLOVID) 300 mg & 100 mg per dose tablet pack; Take 3 tablets by mouth 2 times daily Take 2 nirmatrelvir tablets (300 mg) and 1 ritonavir tablet (100 mg) by mouth2 times daily for 5 days. Indications: COVID- 19 infection Dispense: 30 tablet; Refill: 0 Other orders - benzonatate (TESSALON) 200 MG capsule; Take 1 capsule by mouth 3 times daily as needed for Cough.Dispense: 60 capsule; Refill: 0 - fluticasone (FLONASE) 50 mcg/nasal spray; 1 spray by Nasal route Daily. Dispense: 16 g; Refill: 3 FOLLOW UP: No follow-ups on file. Sooner if necessary, or as discussed. 06/05/2024 3:46 PM Date of Last Screening PHQ9 Depression scale: Total Score 0 06/05/2024 3:46 PM PHQ-9 (QUESTION 9) PHQ-9 Thoughts that you would be better off , or of hurting yourself in some way? 0 Click Here For Flowsheet ACTIVE PROBLEMS: Patient Active Problem List Diagnosis Depression Annual physical exam Postnasal drip Deviated septum Snoring Hypercholesterolemia Vitamin D deficiency Positive allergy test Cough Numerous moles COVID-19 virus infection Fever Sneezing MEDICATIONS: No current outpatient medications on file prior to visit. No current facility-administered medications on file prior to visit. Patient's Medications New Prescriptions AZITHROMYCIN (ZITHROMAX) 250 MG TABLET Take 2 tablets today and 1 tablet each day for 4 more days. Start Date: 06/05/2024 End Date: -- BENZONATATE (TESSALON) 200 MG CAPSULE Take 1 capsule by mouth 3 times daily as needed for Cough. Start Date: 06/05/2024 End Date: -- FLUTICASONE (FLONASE) 50 MCG/NASAL SPRAY 1 spray by Nasal route Daily. Start Date: 06/05/2024 End Date: -- NIRMATRELVIR & RITONAVIR (PAXLOVID) 300 MG & 100 MG PER DOSE TABLET PACK Take 3 tablets by mouth 2 times daily Take 2 nirmatrelvir tablets (300 mg) and 1 ritonavir tablet (100 mg) by mouth 2 times daily for 5 days. Indications: COVID- 19 infection Start Date: 06/05/2024 End Date: -- Modified Medications No medications on file Discontinued Medications No medications on file ROS There were no vitals taken for this visit.There is no height or weight on file to calculate BMI. BP Readings from Last 2 Encounters: 01/04/24 117/71 12/20/23 116/78 Physical Exam PSYCH: Judgment and insight good. Normal mood and affect. Recent memory is good. Answers questions appropriately. Coding by Medical Decision Making (MDM) or Time 2020 Guidelines Prolonged Care Coding Definitions Audio Encounters 31882 5-10 minutes 36205 11-20 minutes 88881 21-30 minutes Wgvw-oz-Gigu and Video Encounters New patients Total Time 27174 15-29 minutes 16519 30-44 minutes 12198 45-59 minutes 80248 60-74 minutes Established Patients Total Time 43525 10-19 minutes 76832 20-29 minutes 54456 30-39 minutes 22201 40-54 minutes VISIT TYPE & CODING: -- VIRTUAL VIDEO VISIT: I spent a total of 30 minutes in chart review, xkwf-zu-ygyc time, post-visit documentation and other services detailed on the day of this encounter.. I was located at my office. The patient confirmed they were at their the permanent address on file, which is in a state in which I am licensed. I was able to see the patient using a 2 [address] encrypted connection. They were notified that a copay may be required, and a verbal consent for the virtual visit was obtained. They stated they understood the benefits (safety, convenience) and risks (geographic information systems manager issues, quipment problems, audio and video difficulties) to this service. documented in this encounter Plan of Treatment Not on file documented as of this encounter Visit Diagnoses Diagnosis COVID-19 virus infection- Primary Fever, unspecified fever cause Sneezing Other symptoms involving head and neck documented in this encounter Additional Health Concerns Assessment Noted Time PHQ-9 Depression Total Score: 0 06/05/20 3:46 PM PDT PHQ-2 Depression Total Score: 0 12/19/19 8:48 PM PST documented as of this encounter Care Teams General Counselor Relationship Specialty Start Date End Date Petrona Felix MD [address] [place] [address] PCP - General Family Medicine 10/01/22 documented as of this encounter
--- OUTSIDE RECORDS SUMMARY | 2024-11-06 03:33 | XMS_ITS | Encounter Summary ---
Author Organization [facility] Address [address] [address] Care Team Providers Care Bowl Attendant Name Role Phone Petrona Felix MD Primary Care Pr ovider Encounter Details Date Type Department Care Team (Late st Contact Info) Description 12/02/2023 Infectious Risk Screen Social History Tobacco Use Types Packs/Day Years Used Date Smoking Tobacco: Never Smokeless Tobacco: Never Alcohol Use Standard Drinks/Week Comments Yes 10 (1 standard drink = 0.6 oz pu re alcohol) Alcohol Use History Answer Date Recorde d [...] documented as of this encounter Care Teams Bowl Attendant Relationship Specialty Start Date End Date Petrona Felix MD [address] [place] [address] PCP - General Family Medicine 10/01/22 documented as of this encounter
--- OUTSIDE RECORDS SUMMARY | 2024-11-06 03:33 | XMS_ITS | Encounter Summary ---
Author Organization [facility] Address [address] [facility] [place] [address] Phone Care Team Providers Care Death Surveys Coder Name Role Phone Redd Bond MD Primary Care Provider [phone] Encounter Details Date Type Department Care Team (Late st Contact Info) Description 05/18/2012 Orders Only [facility] Geriatrics Program [address] [facility] [address] [place] [address] Redd Bond MD [address] [facility], 4TH FLOOR [address] [place], [place] [id number] Social History Tobacco Use Types Packs/Day Years [...] on file documented as of this encounter Procedures Procedure Name Priority Date/Time Associated Diagnosis Comments URINE MICROSCOPIC ANALYSIS Routine 05/18/2012 11:38 AM PDT documented in this encounter Results * URINE MICROSCOPIC ANALYSIS (05/18/2012 11:38 AM PDT) WBC, UA None seen 0 - 5 /hpf [facility] RBC, UA 0-3 0 - 3 /hpf [facility] NON-RENAL EPITHELIAL, UA None seen 0 - 10 /hpf [facility] Renal Epithelial, UA (*) [facility] Casts, UA (*) [facility] CRYSTAL TYPE, UA (*) [facility] Crystal Amount, UA (*) [facility] Crystals,UA (*) [facility] Mucus, UA (*) [facility] Bacteria, UA None seen None seen/Few [facility] Yeast, UA (*) [facility] Trichomonas, UA (*) [facility] Comment (*) [facility] 05/18/2012 11:3 8 AM PDT 05/19/2012 5:41 AM PDT Narrative [facility] - 05/19/2012 1:09 PM PDT PATIENT WAS FASTING [id number] test performed at [facility] [address], [place], [address] Facilty Phone number: Facility Director name:Priscila Posada MD (*) RESULT NOT AVAILABLE: Epithelial Cells (renal), Casts, Cast Type, Crystals, Crystal Type, Mucus Threads, Yeast, Trichomonas, Comment us Redd Bond MD CHEMISTRY ORDERABLES Final Resu lt [facility] [address] [place] [address] documented in this encounter Visit Diagnoses Not on filedocumented in this encounter Care Teams Death Surveys Coder Relationship Specialty Start Date End Date Redd Bond MD [address] [facility], [address] FLO[address] [place], [place] [phone] PCP - General 04/14/12 documented as of this encounter
--- OUTSIDE RECORDS SUMMARY | 2024-11-06 03:33 | XMS_ITS | Encounter Summary ---
Author Organization [facility] Address [address] [address] Care Team Providers Care Ferryboat Operator Name Role Phone Petrona Felix MD Primary Care Pr ovider Encounter Details Date Type Department Care Team (Late st Contact Info) Description 12/20/2023 Infectious Risk Screen [facility] [address] [phone] Social History Tobacco Use Types Packs/Day Years [...] documented as of this encounter Care Teams Ferryboat Operator Relationship Specialty Start Date End Date Petrona Felix MD [address] [place] [address] PCP - General Family Medicine 10/01/22 documented as of this encounter
--- OUTSIDE RECORDS SUMMARY | 2024-11-06 03:33 | XMS_ITS | Encounter Summary ---
Author Organization [facility] Address [address] [address] Care Team Providers Care Managing Consultant Name Role Phone Petrona Felix MD Primary Care Pr ovider Encounter Details Date Type Department Care Team (Late st Contact Info) Description 01/04/2024 Infectious Risk Screen [facility] Internal Medicine [address] [phone] Social History Tobacco Use Types Packs/Day Years [...] documented as of this encounter Care Teams Managing Consultant Relationship Specialty Start Date End Date Petrona Felix MD [address] [place] [address] PCP - General Family Medicine 10/01/22 documented as of this encounter
--- OUTSIDE RECORDS SUMMARY | 2024-11-06 03:33 | XMS_ITS | Encounter Summary ---
Author Organization [facility] Address [address] [address] Care Team Providers Care Tuck Pointer Name Role Phone Petrona Felix MD Primary Care Pr ovider Reason for Visit * Reason Onset Date Comments Covid Question 06/04/2024 Encounter Details Date Type Department Care Team (Late st Contact Info) Description 06/04/2024 Telephone [facility] [address] [phone] Petrona Felix MD [address] [place] [address] Covid Question Social History Tobacco Use Types Packs/Day Years [...] encounter Miscellaneous Notes * Telephone Encounter - Diandra Hansen LPN - 06/04/2024 2:19 PM PDT Patient Related Message PT. NAME: David Fairchild (Tom) Payor: [employer] / Plan: [employer] OPEN ACCESS PLUS / Product Type: [email or web address] PHONE: [phone] Phone Verified: Yes Patient scheduled appointment via virtual with PCP tomorrow 06/05/2024 @ 4pm. DIANDRA HANSEN LPN 06/04/2024 at 2:19 PM PDT * Telephone Encounter - Mihaela Ochoa - 06/04/2024 2:08 PM PDT Patient Related Message PT. NAME: David Fairchild (Tom) Payor: [employer] / Plan: [employer] OPEN ACCESS PLUS / Product Type: [employer] PHONE: [phone] Phone Verified: Yes 3. MEDICAL CONCERNS ADULT: ADULT RESPIRATORY (INC COLD/FLU/WHEEZING) SYMPTOMS What is your temperature: Temperature less than 100.4 Symptoms: Sore throat and Stuffy nose (nasal congestion) Body aches No breathing difficulty, shortness of breath, or wheezing Other: None Patient states he tested positive for covid-19 this morning. Last night,he started sneezing, feeling slight fever and sore throat, and bodyaches. Patient wanted to ask Dr. Molina if he can be prescribed Paxlovid. Patient aware PCP is out of office. Please advise. Allergies Allergen Reactions Food Other (See Comments) [place] Bark - post nasal drip IF NURSE IS NOT AVAILABLE - SEND TO DOCTOR OF THE DAY No future appointments. JOB AIDS POOLS P FMF <SITE/TEAM> CLINCAL SUPPORT POOL P FMF <SITE/SPECIALTY> RESOURCE NURSE POOL (SITES - BUR, CC, CH, MH, [place], [place], [place], TZ, BENI, VSC) Mihaela Ochoa 06/04/2024 at 2:08 PM PDT documented in this encounter Plan of Treatment Not on file documented as of this encounter Visit Diagnoses Not on filedocumented in this encounter Additional Health Concerns Assessment Noted Time PHQ-9 Depression Total Score: 4 10/01/20 22 11:36 AM PST PHQ-2 Depression Total Score: 0 12/19/19 24 8:48 PM PST documented as of this encounter Care Teams Tuck Pointer Relationship Specialty Start Date End Date Petrona Felix MD [address] [place] [address] PCP - General Family Medicine 10/01/22 documented as of this encounter
--- OUTSIDE RECORDS SUMMARY | 2024-11-06 03:33 | XMS_ITS | Referral Summary ---
Author Organization [facility] Address [address] [address] Care Team Providers Care Bench Scientist Name Role Phone Petrona Felix MD Primary Care Pr ovider Allergies Active Allergy Reactions Criticality Noted Date Comments Food Other (See Comments) 12/20/2023 [place]ridge Bark - post nasal drip Medications benzonatate (TESSALON) 200 MG capsule Take 1 capsule by mouth 3 times daily as needed for Cough. 60 capsule 4 Active azithromycin (ZITHROMAX) 250 mg tabletIndicatio ns:COVID-19 virus infection,Fever , unspecified fever cause,Sneezing Take 2 tablets today and 1 tablet each day for 4 more days. 6 tablet 4 Active fluticasone (FLONASE) 50 mcg/nasal spray 1 spray by Nasal route Daily. 16 g 3 4 Active nirmatrelvir & ritonavir (PAXLOVID) 300 mg & 100 mg per dose tablet packIndications :COVID-19 INFECTION Take 3 tablets by mouth 2 times daily Take 2 nirmatrelvir tablets (300 mg) and 1 ritonavir tablet (100 mg) by mouth 2 times daily for 5 days. Indications: COVID-19 infection 30 tablet 4 Active Active Problems Problem Noted Date Diagnosed Date COVID-19 virus infection 06/05/2024 Fever 06/05/2024 Sneezing 06/05/2024 Numerous moles 01/04/2024 Cough 12/20/2023 Assessment & Plan (12/20/2023 10:31 AM PST): After infection in Dec Will keep me posted is worsening Hypercholesterolemia 10/19/2022 Assessment & Plan (01/04/2024 10:46 AM PST): Patient declined treatment, aware of the risks associated with not treating the medical problem including risk of . Your cholesterol is high please avoid processed food, carbohydrates, take fish oil and flexseed oil and will recheck the lipid again in 6 months Assessment & Plan (10/19/2022 8:57 AM PST): Patient declined treatment, aware of the risks associated with not treating the medical problem including risk of . Your cholesterol is high please avoid processed food, carbohydrates, take fish oil and flexseed oil and will recheck the lipid again in 3- 6 months Vitamin D deficiency 10/19/2022 Assessment & Plan (01/04/2024 9:32 AM PST): Keep supplement Assessment & Plan (10/19/2022 9:08 AM PST): Your vitamin D was slightly low, please take 2000 - units of vitamin D daily which is an over the counter medication and repeat the level again in 6 months Please call before you came to the lab for the order to be placed Positive allergy test 10/19/2022 Assessment & Plan (10/19/2022 9:09 AM PST): Mild allergies, patient aware, has no symptoms, will have over the counter medication and if any problems will go to UC/ER and call clinic back Depression 10/01/2022 Assessment & Plan (10/01/2022 11:45 AM PST): No SI or HI Piecer Up now Feels better now Annual physical exam 10/01/2022 Postnasal drip 10/01/2022 Deviated septum 10/01/2022 Snoring 10/01/2022 Assessment & Plan (10/01/2022 11:48 AM PST): tells him he snores Immunizations Name Administration Dates Next Due INFLUENZA PF, QUADRIVALENT 09/04/2021 INFLUENZA W/PRES QUADRIVALENT 08/04/2020 Social History Tobacco Use Types Packs/Day Years Used Date Smoking Tobacco: Never Smokeless Tobacco: Never Tobacco Cessation:Counseling Given: Not Answered Alcohol Use Standard Drinks/Week Comments Yes 10 [...] on file Sexual Orientation Not on file Last Filed Vital Signs Vital Sign Reading Time Taken Comments Blood Pressure 117/71 01/04/2024 8:35 AM PST Pulse 84 01/04/2024 8:35 AM PST Temperature - - Respiratory Rate 18 10/01/2022 11:14 AM PST Oxygen Saturation 96% 01/04/2024 8:35 AM PST Inhaled Oxygen Concentration - - Weight 74.9 kg (165 lb 3.2 oz) 01/04/2024 8:35 A M PST Height 169 cm (5' 6.54 ) 01/04/2024 8:35 AM PST Body Mass Index 26.23 01/04/2024 8:35 AM PST Plan of Treatment Not on file Procedures Procedure Name Priority Date/Time Associated Diagnosis Comments HIV AG/AB, 4TH GEN, REFLEX Routine 12/20/2023 10:15 AM PST Annual physical exam Vitamin D deficiency Hypercholesterolemia HEPATITIS C AB Routine 10/07/2022 8:33 AM PST Depression, unspecified depression type Annual physical exam Postnasal drip Deviated septum Snoring from Last 3 Months or Most Recently Relevant to Health Maintenance Results * HIV AG/AB, 4th Gen, Reflex (12/20/2023 10:15 AM PST) HIV 1/2 Ab and P24 Ag NON-REACT FARSHAD NON-REACT FARSHAD 12/22/2023 6:49 PM PST REFERENCE LAB [facility] Comment: HIV-1 antigen and HIV-1/HIV-2 antibodies [...] ?? For additional information please refer to http://education.[employer]/faq/MTH130 (This link is being provided for informational/ educational purposes only.) The performance of this assay has not been clinically validated in patients less than 2 years old. Blood Venipuncture / Unknown 12/20/2023 10:15 AM PST 12/20/2023 11:13 AM PST Narrative REFERENCE LAB [facility] - 12/22/2023 6:49 PM PST Performing Organization Information: ?Site ID: [id number] ?Name: [facility] ?Address: [address] [place] [address] ?Director: HAYLEE SYLVESTER MD Petrona Felix MD LAB BLOOD ORDERA BLES Final Result [facility] [address] [place] [address] * Hepatitis C Ab (10/07/2022 8:33 AM PST) Hepatitis C Ab NON-REACT FARSHAD NON-REACT FARSHAD 10/08/2022 4:44 PM PST [facility] Signal/Cutoff 0.07 <1.00 10/08/2022 4:44 PM PST [facility] Comment: HCV antibody was non-reactive. There is no laboratory evidence of HCV infection. In most cases, no further action is required. However, if recent HCV exposure is suspected, a test for HCV RNA (test code 48180) is suggested. For additional information please refer to http://education.[employer]/faq/CZY60r9 (This link is being provided for informational/ educational purposes only.) Blood Venipuncture / Unknown 10/07/2022 8:33 AM PST 10/07/2022 12:55 PM PST Narrative REFERENCE LAB [facility] - 10/08/2022 4:44 PM PST Performing Organization Information: ?Site ID: [id number] ?Name: [facility] ?Address: [address] [place] [address] ?Director: HAYLEE SYLVESTER MD Petrona Felix MD LAB BLOOD ORDERA BLES Final Result [facility] [address] [place] [address] from Last 3 Months or Most Recently Relevant to Health Maintenance Insurance [facility] OPEN ACCESS PLUS Care Teams Bench Scientist Relationship Specialty Start Date End Date Petrona Felix MD [address] [place] [address] PCP - General Family Medicine 10/01/22
--- OUTSIDE RECORDS SUMMARY | 2024-11-06 03:33 | XMS_ITS | Clinical Summary ---
Author Organization [facility] Address [address] [place] [address] Phone Care Team Providers Care Conference Center Manager Name Role Phone Redd Bond MD Primary Care Provider [phone] Source Comments The Guided Interventions EMR is fully implemented at [facility] Allergies No known active allergies Medications * Always verify current medications with the patient. No known medications Family History Medical History Relation Name Comments No Significant Medical Problems Brother 1 No Significant Medical Problems Brother 2 No Significant Medical Problems Father No Significant Medical Problems Mother No Significant Medical Problems Sister Relation Name Status Comments Brother 1 Alive Brother 2 Alive Father Alive Mother Alive Sister Alive Social History Tobacco Use Types Packs/Day Years [...] Mass Index 22.24 05/18/2012 10:08 AM PDT Plan of Treatment Health Maintenance Due Date Last Done Comments CRC Screening 1972 CT Colonography Test 1972 Cologuard 1970 Colonoscopy 1972 FIT Test 1972 Flexible Sigmoidoscopy 1972 Hep C Screening 1972 Depression Assessment (PHQ 2 -9 / PHQ A / EPDS) 1984 DTaP,Tdap,and Td Vaccines (1 - Tdap) 02/07/1991 Zoster Vaccine (1 of 2) 02/07/2022 COVID-19 Vaccination (SARS-C oV-2) ( - 2023- season) 2024 Influenza Vaccine (#1) 2024 Pneumococcal Peds and High-R isk Adults Aged Out No longer eligible b ased on patient's age to complete this topic Care Teams Conference Center Manager Relationship Specialty Start Date End Date Redd Bond MD [address] [facility] [place] [address] PCP - General 04/14/12
--- OUTSIDE RECORDS SUMMARY | 2024-11-06 03:33 | XMS_ITS | Encounter Summary ---
Author Organization [facility] an [facility] Address [address] [address] Care Team Providers Care Claim Technician Name Role Phone Petrona Felix MD Primary Care Pr ovider Reason for Referral * Evaluate & Treat (Routine) - Authorized Specialty Diagnoses / Procedures Referred By Karma guallpa Referred To Contact Dermatology Diagnoses Numerous moles Petrona Felix MD [address] [place] [address] Phone: tel: fax: [facility] [address] [address] Phone: tel: fax: Referral ID Status Reason Start Date Expiration Date Visits Requested Visits Authorized [id number] Authorized Specialty Services Required 01/04/2024 01/03/2025 1 1 Reason for Visit * Reason Comments Follow-up On results Encounter Details Date Type Department Care Team (Latest Contact Info) Description 01/04/2024 9:00 AM PST Office Visit [facility] [place] [facility] [address] [place] [phone] Petrona Felix MD [address] [place] [address] Hypercholesterolemia (Primary Dx); Numerous moles; Vitamin D deficiency Social History Tobacco Use Types Packs/Day Years [...] - Respiratory Rate - - Oxygen Saturation 96% 01/04/2024 8:35 AM PST Inhaled Oxygen Concentration - - Weight 74.9 kg (165 lb 3.2 oz) 01/04/2024 8:35 A M PST Height 169 cm (5' 6.54 ) 01/04/2024 8:35 AM PST Body Mass Index 26.23 01/04/2024 8:35 AM PST documented in this encounter Progress Notes * Petrona Felix MD - 01/04/2024 9:00 AM PST [facility] [place] PROGRESS NOTE Patient Name: David Fairchild (Tom) Age: 53 y.o. : 1970 Author: Petrona Felix MD Date of Encounter: 01/04/2024 CHIEF COMPLAINT: David Fairchild (Tom) is a 53 y.o. male who presents with Follow-up (On results ) History of Present Illness Assessment & Plan 1. Hypercholesterolemia (Primary) Assessment & Plan: Patient declined treatment, aware of the risks associated with not treating the medical problem including risk of . Your cholesterol is high please avoid processed food, carbohydrates, take fish oil and flexseed oiland will recheck the lipid again in 6 months Orders: - Hepatic Function Panel; Future; Expected date: 04/05/2024 - Lipid Panel, Direct LDL, Reflex; Future; Expected date: 04/05/2024 2. Numerous moles - * REFERRAL TO DERMATOLOGY FMF - Hepatic Function Panel; Future; Expected date: 04/05/2024 - Lipid Panel, Direct LDL, Reflex; Future; Expected date: 04/05/2024 3. Vitamin D deficiency Assessment & Plan: Keep supplement Orders: - Hepatic Function Panel; Future; Expected date: 04/05/2024 - Lipid Panel, Direct LDL, Reflex; Future; Expected date: 04/05/2024 FOLLOW UP: No follow-ups on file. Sooner if necessary, or as discussed. 12/19/2023 8:48 PM Date of Last Screening PHQ-2 Total Score 0 [place] PHQ-2 Total Negative 10/01/2022 11:36 AM PHQ-9 (QUESTION 9) PHQ-9 Thoughts that you would be better off , or of hurting yourself in some way? 0 Click Here For Flowsheet ACTIVE PROBLEMS: Patient Active Problem List Diagnosis Depression Annual physical exam Postnasal drip Deviated septum Snoring Hypercholesterolemia Vitamin D deficiency Positive allergy test Cough Numerous moles MEDICATIONS: No current outpatient medications on file prior to visit. No current facility-administered medications on file prior to visit. Patient's Medications No medications on file ROS Blood pressure 117/71, pulse 84, height 1.69 m (5' 6.54 ), weight 74.9 kg (165 lb 3.2 oz), SpO2 96 %.Body mass index is 26.23 kg/m??. BP Readings from Last 2 Encounters: 01/04/24 117/71 12/20/23 116/78 Physical Exam LUNGS: Clear to auscultation. No wheezes, rales or rhonchi. HEART: Regular rate and rhythm. No appreciable murmurs. 6 mm moles on the side of the forehead Coding by Medical Decision Making (MDM) or Time 2020 Guidelines Prolonged Care Coding Definitions Audio Encounters 24321 5-10 minutes 96528 11-20 minutes 89896 21-30 minutes [id number] and Video Encounters New patients Total Time 77140 15-29 minutes 25261 30-44 minutes 88932 45-59 minutes 61647 60-74 minutes Established Patients Total Time 43756 10-19 minutes 22097 20-29 minutes 00827 30-39 minutes 36840 40-54 minutes VISIT TYPE & CODING: -- OFFICE VISIT : Coding: I spent a total of 30 minutes in chart review, [id number] time, post-visit documentation and other services detailed on the day of this encounter. documented in this encounter Miscellaneous Notes * Assessment & Plan Note - Petrona Felix MD - 01/04/2024 10:46 AM PSTAssociated Problem(s): Hypercholesterolemia Patient declined treatment, aware of the risks associated with not treating the medical problem including risk of . Your cholesterol is high please avoid processed food, carbohydrates, take fish oil and flexseed oiland will recheck the lipid again in 6 months * Assessment & Plan Note - Petrona Felix MD - 01/04/2024 9:32 AM PSTAssociated Problem(s): Vitamin D deficiency Keep supplement documented in this encounter Plan of Treatment Scheduled Orders Name Type Priority Associated Diagnoses Orde r Schedule Hepatic Function Panel Lab Routine Numerous moles Hypercholesterolemia Vitamin D deficiency Expected: 04/05/2024 (Approximate), Expires: 07/06/2025 Lipid Panel, Direct LDL, Reflex Lab Routine Numerous moles Hypercholesterolemia Vitamin D deficiency Expected: 04/05/2024 (Approximate), Expires: 07/06/2025 Scheduled Referrals Name Type Priority Associated Diagnoses Order Schedule * REFERRAL TO DERMATOLOGY F Outpatient Referral Routine Numerous moles Ordered: 01/04/2024 documented as of this encounter Visit Diagnoses Diagnosis Hypercholesterolemia- Primary Pure hypercholesterolemia Numerous moles Benign neoplasm of skin, site unspecified Vitamin D deficiency Unspecified vitamin D deficiency documented in this encounter Additional Health Concerns Assessment Noted Time PHQ-9 Depression Total Score: 4 10/01/20 22 11:36 AM PST PHQ-2 Depression Total Score: 0 12/19/19 24 8:48 PM PST documented as of this encounter Care Teams Claim Technician Relationship Specialty Start Date End Date Petrona Felix MD [address] [place] [address] PCP - General Family Medicine 10/01/22 documented as of this encounter
--- OUTSIDE RECORDS SUMMARY | 2024-11-06 03:33 | XMS_ITS | Encounter Summary ---
Author Organization [facility] an [facility] Address [address] [address] Care Team Providers Care Dialysis Patient Care Technician Name Role Phone Petrona Felxi MD Primary Care Pr ovider Encounter Details Date Type Department Care Team (Late st Contact Info) Description 10/19/2022 Infectious Risk Screen [facility] Internal [facility] [address] [phone] Social History Tobacco Use Types Packs/Day Years [...] documented as of this encounter Care Teams Dialysis Patient Care Technician Relationship Specialty Start Date End Date Petrona Felix MD [address] [place] [address] PCP - General Family Medicine 10/01/22 documented as of this encounter
--- OUTSIDE RECORDS SUMMARY | 2024-11-06 03:33 | XMS_ITS | Encounter Summary ---
Author Organization [facility] Address [address] [address] Care Team Providers Care Exterior Designer Name Role Phone Unavailable Primary Care Provider Unavailabl e Encounter Details Date Type Department Care Team (Late st Contact Info) Description 09/16/2022 Infectious [address] [facility] BUSINESS OFFICE [address] [place] [phone] Social History Tobacco Use Types Packs/Day Years Used Date Smoking Tobacco: Never Assessed Sex and Gender Information Value Date Recorded Sex Assigned at Not on file Legal Sex Male 3:09 AM PDT Gender Identity Not on file Sexual Orientation Not on file documented as of this encounter Plan of Treatment Not on file documented as of this encounter Visit Diagnoses Not on filedocumented in this encounter
--- OUTSIDE RECORDS SUMMARY | 2024-11-06 03:33 | XMS_ITS | Encounter Summary ---
Author Organization [facility] Address [address] [address] Care Team Providers Care Cocoa Milling Machine Operator Name Role Phone Petrona Felix MD Primary Care Pr ovider Encounter Details Date Type Department Care Team (Late st Contact Info) Description 10/01/2022 Infectious Risk Screen [facility] Internal Medicine [address] [phone] Social History Tobacco Use Types Packs/Day Years [...] documented as of this encounter Care Teams Cocoa Milling Machine Operator Relationship Specialty Start Date End Date Petrona Felix MD [address] [place] [address] PCP - General Family Medicine 10/01/22 documented as of this encounter
--- OUTSIDE RECORDS SUMMARY | 2024-11-06 03:33 | XMS_ITS | Encounter Summary ---
Author Organization [facility] Address [address] [address] Care Team Providers Care Duplication Specialist Name Role Phone Unavailable Primary Care Provider Unavailabl e Encounter Details Date Type Department Care Team (Late st Contact Info) Description 12/25/1997 - 12/25/1997 11:59 PM [facility] Hospital Encounter [facility] GENER[facility] OP CONVERSION DEPT [facility] [place] [address] Conversion Transaction, Provider Unknown Social History Tobacco Use Types Packs/Day Years [...]
--- OUTSIDE RECORDS SUMMARY | 2024-11-06 03:33 | XMS_ITS | Encounter Summary ---
Author Organization [facility] Address [address] [address] Care Team Providers Care Enterer Name Role Phone Petrona Felix MD Primary Care Pr ovider Reason for Referral * Evaluate & Treat (Routine) - Closed Specialty Diagnoses / Procedures Referred By Karma guallpa Referred To Contact Sleep Medicine Diagnoses Snoring Petrona Felix MD [address] [place] [address] Phone: tel: fax: [facility] [address] [address] Phone: tel: Referral ID Status Reason Start Date Expiration Date V isits Requested Visits Authorized [id number] Closed Specialty Services Required 10/01/2022 10/01/2023 1 1 * Evaluate & Treat (Routine) - Closed Specialty Diagnoses / Procedures Referred By Karma guallpa Referred To Contact Diagnoses Depression, unspecified depression type Annual physical exam Postnasal drip Deviated septum Snoring Petrona Felix MD [address] [place] [address] Phone: tel: fax: [facility] [address] [address] [facility] [address] [place] [address] Phone: tel: fax: Referral ID Status Reason Start Date Expiration Date V isits Requested Visits Authorized [id number] Closed Specialty Services Required 10/01/2022 10/01/2023 1 1 Reason for Visit * Reason Comments Establish Care Encounter Details Date Type Department Care Team (Late st Contact Info) Description 10/01/2022 11:20 AM PST Office Visit [facility] [place] [address] [address] Petrona Felix MD [address] [place] [address] Annual physical exam (Primary Dx); Depression, unspecified depression type; Postnasal drip; Deviated septum; Snoring Social History Tobacco Use Types Packs/Day Years Used Date Smoking Tobacco: Never Smokeless Tobacco: Never Tobacco Cessation:Counseling Given: No Alcohol Use Standard Drinks/Week Comments Yes 10 (1 standard drink = 0.6 oz pu re alcohol) Sex and Gender Information Value Date Recorded Sex Assigned at Not on file Legal Sex Male 3:09 AM PDT Gender Identity Not on file Sexual Orientation Not on file documented as of this encounter Last Filed Vital Signs Vital Sign Reading Time Taken Comments Blood Pressure 113/71 10/01/2022 11:14 AM PST Pulse 76 10/01/2022 11:14 AM PST Temperature - - Respiratory Rate 18 10/01/2022 11:14 AM PST Oxygen Saturation 96% 10/01/2022 11:14 AM PST Inhaled Oxygen Concentration - - Weight 77.6 kg (171 lb) 10/01/2022 11:14 AM PST Height 170.2 cm (5' 7 ) 10/01/2022 11:14 AM PST Body Mass Index 26.78 10/01/2022 11:14 AM PST documented in this encounter Progress Notes * Petrona Felix MD - 10/01/2022 11:20 AM PST [facility] INTERNAL MEDICINE - HISTORY AND PHYSICAL EXAM Patient Name: David Fairchild Age: 52 y.o. : 1970 Author: Petrona Felix MD Date of Encounter: 10/01/2022 CHIEF COMPLAINT: David Fairchild is a 52 y.o. male who presents for annual physical. HPI: David Fairchild is a 52 y.o. male who presents with [facility] Care ASSESSMENT & PLAN: 1. Annual physical exam (Primary) - Hemoglobin A1C; Future - Basic Metabolic Panel; Future - CBC with Differential; Future - Hepatic Function Panel; Future - Hepatitis C Ab; Future; Expected date: 10/01/2022 - Lipid Panel; Future - TSH; Future - Urinalysis With Microscopic; Future; Expected date: 10/01/2022 - Culture, Urine; Future; Expected date: 10/01/2022 - Vitamin D, Deficiency Screen (25-Hydroxy); Future - Allergen Panel, Adult Food; Future - Allergens, Panel, Resp Region XIII; Future - Occult Blood, Fecal Immunochemical Test (FIT); Future; Expected date: 10/01/2022 - SCREENING COLONOSCOPY REF AUTH REQ ([id number]) - PSA, Screen; Future 2. Depression, unspecified depression type Assessment & Plan: No SI or HI Director Of Operations Support now Feels better now Orders: - Hemoglobin A1C; Future - Basic Metabolic Panel; Future - CBC with Differential; Future - Hepatic Function Panel; Future - Hepatitis C Ab; Future; Expected date: 10/01/2022 - Lipid Panel; Future - TSH; Future - Urinalysis With Microscopic; Future; Expected date: 10/01/2022 - Culture, Urine; Future; Expected date: 10/01/2022 - Vitamin D, Deficiency Screen (25-Hydroxy); Future - Allergen Panel, Adult Food; Future - Allergens, Panel, Resp Region XIII; Future - Occult Blood, Fecal Immunochemical Test (FIT); Future; Expected date: 10/01/2022 - SCREENING COLONOSCOPY REF AUTH REQ ([id number]) - PSA, Screen; Future 3. Postnasal drip - Hemoglobin A1C; Future - Basic Metabolic Panel; Future - CBC with Differential; Future - Hepatic Function Panel; Future - Hepatitis C Ab; Future; Expected date: 10/01/2022 - Lipid Panel; Future - TSH; Future - Urinalysis With Microscopic; Future; Expected date: 10/01/2022 - Culture, Urine; Future; Expected date: 10/01/2022 - Vitamin D, Deficiency Screen (25-Hydroxy); Future - Allergen Panel, Adult Food; Future - Allergens, Panel, Resp Region XIII; Future - Occult Blood, Fecal Immunochemical Test (FIT); Future; Expected date: 10/01/2022 - SCREENING COLONOSCOPY REF AUTH REQ ([id number]) - PSA, Screen; Future 4. Deviated septum - Hemoglobin A1C; Future - Basic Metabolic Panel; Future - CBC with Differential; Future - Hepatic Function Panel; Future - Hepatitis C Ab; Future; Expected date: 10/01/2022 - Lipid Panel; Future - TSH; Future - Urinalysis With Microscopic; Future; Expected date: 10/01/2022 - Culture, Urine; Future; Expected date: 10/01/2022 - Vitamin D, Deficiency Screen (25-Hydroxy); Future - Allergen Panel, Adult Food; Future - Allergens, Panel, Resp Region XIII; Future - Occult Blood, Fecal Immunochemical Test (FIT); Future; Expected date: 10/01/2022 - SCREENING COLONOSCOPY REF AUTH REQ ([id number]) - PSA, Screen; Future 5. Snoring Assessment & Plan: tells him he snores Orders: - Hemoglobin A1C; Future - Basic Metabolic Panel; Future - CBC with Differential; Future - Hepatic Function Panel; Future - Hepatitis C Ab; Future; Expected date: 10/01/2022 - Lipid Panel; Future - TSH; Future - Urinalysis With Microscopic; Future; Expected date: 10/01/2022 - Culture, Urine; Future; Expected date: 10/01/2022 - Vitamin D, Deficiency Screen (25-Hydroxy); Future - Allergen Panel, Adult Food; Future - Allergens, Panel, Resp Region XIII; Future - Occult Blood, Fecal Immunochemical Test (FIT); Future; Expected date: 10/01/2022 - SCREENING COLONOSCOPY REF AUTH REQ ([id number], [id number]) - PSA, Screen; Future - AMB REFERRAL TO SLEEP STUDY F FOLLOW UP: After care instructions & AVS [...] physical exam Postnasal drip Deviated septum Snoring PAST MEDICAL HISTORY: He has a past medical history of Depression. PAST SURGICAL HISTORY: He has no past surgical history on file. FAMILY HISTORY: His family history includes Hypertension in his father; Stroke in his father. SOCIAL HISTORY: reports that he has never smoked. He has never used smokeless tobacco. He reports current alcohol use of about 10.0 standard drinks per week. MEDICATIONS: No outpatient medications prior to visit. No facility-administered medications prior to visit. Patient's Medications No medications on file : ALLERGIES: Patient has no known allergies. LOREE MAINTENANCE: Preventative Services TOPIC LAST DONE NEXT DUE Cologuard 02/07/1990 Fit 02/07/1990 Ct Colonography 02/07/1990 Hepatitis C Screening 1970 Vaccine: Influenza 09/04/2021 07/01/2022 Sigmoidoscopy 02/07/1990 Colonoscopy 02/07/1990 Covid-19 Vaccine 10/07/2021 12/02/2021 Vaccine: Dtap/Tdap/Td 02/07/1991 Vaccine: Zoster 02/07/2022 Colorectal Combination Topic 02/07/1990 IMMUNIZATIONS: Immunization History Administered Date(s) Administered COVID-19 (MODERNA, LIGHT BLUE LABEL-BORDER) 12 YRS+, 0.5 ML 02/13/2021, 03/13/2021, 10/07/2021 INFLUENZA PF, QUADRIVALENT 09/04/2021 INFLUENZA W/PRES QUADRIVALENT 08/04/2020 CARE TEAM: Patient Care Team: Petrona Felix MD as PCP - General (Family Medicine) REVIEWED LAB(S): No results found for this or any previous visit (from the past 1344 hour(s)). REVIEW OF SYMPTOMS: Constitutional: No fevers, chills, night sweats or unintentional weight loss. HEENT: No difficulties with hearing. No difficulty swallowing, sore throat or mouth pain. Heme/Lymphatic: No abnormal bleeding or bruises. Unaware of any adenopathy. Cardiovascular: No anginal chest pain, palpitations or orthopnea. Respiratory: No dyspnea on exertion, pleuritic chest pain, or hemoptysis. Gastrointestinal: No nausea, vomiting, diarrhea, or significant change in bowels. No melena or hematochezia. Genitourinary: No hematuria, dysuria, increased frequency or urgency. Skin: No rashes, inflammation, ulcerations or skin changes. Neurologic: No headache, no new numbness, weakness or tingling. Endocrine: No polyuria or polydipsia. No cold or heat intolerance. Date of Last Screening 10/01/2022 PHQ9 Depression scale: Total Score 4 @REVFS(896:1:1) PHYSICAL EXAM: VITAL SIGNS: BP 113/71 Pulse 76 Resp 18 Ht 1.702 m (5' 7 ) Wt 77.6 kg (171 lb) SpO2 96% BMI 26.78 kg/m?? Blood pressure, heart rate and temperature reviewed. General: Well developed, well nourished male in no distress. Appears oriented x 4. Insight and judgment intact. HEENT: Normocephalic, ears and nose - atraumatic. No lid-lag. No pale or injected conjunctiva. EOMI, PERRLA. No cervical adenopathy. Oropharynx: Clear without lesions. Neck: Full range of motion with flexion [...] or rash. No palpable skin nodules. Petrona Felix MD documented in this encounter Miscellaneous Notes * Assessment & Plan Note - Petrona Felix MD - 10/01/2022 11:47 AM PSTAssociated Problem(s): Snoring tells him he snores * Assessment & Plan Note - Petrona Felix MD - 10/01/2022 11:42 AM PSTAssociated Problem(s): Depression No SI or HI Director Of Operations Support now Feels better now documented in this encounter Plan of Treatment Scheduled Orders Name Type Priority Associated Diagnoses Orde r Schedule Occult Blood, Fecal Immunochemical Test (FIT) Lab Routine Depression, unspecified depression type Annual physical exam Postnasal drip Deviated septum Snoring Expected: 10/01/2022 (Approximate), Expires: 04/01/2024 Scheduled Referrals Name Type Priority Associated Diagnoses Orde r Schedule SCREENING COLONOSCOPY REF AUTH REQ ([id number]) Outpatient Referral Routine Depression, unspecified depression type Annual physical exam Postnasal drip Deviated septum Snoring Ordered: 10/01/2022 AMB REFERRAL TO SLEEP STUDY F Outpatient Referral Routine Snoring Ordered: 10/01/2022 documented as of this encounter Results * Culture, Urine (10/07/2022 8:45 AM PST) Urine Culture, Routine SEE NOTE 10/08/2022 6:52 PM PST REFERENCE LAB [facility] Comment: ??CULTURE, URINE, ROUTINE ?Micro Number: ?[id number] ??Test Status: ? Final ??Specimen Source: ?? Urine ??Specimen Quality: ??Adequate ??Result: ?No Growth Urine URINE SPECIMEN OBTAINED BY CLEAN CATCH PROCEDURE / Unknown Collection / Unknown 10/07/2022 8:45 AM PST 10/07/2022 12:03 PM PST Narrative REFERENCE LAB [facility] - 10/08/2022 6:52 PM PST Performing Organization Information: ?Site ID: EN ?Name: [facility] ?Address: [address] [place] [phone] ?Director: HAYLEE SYLVESTER MD Petrona Felix MD MICROBIOLOGY - G ENERAL ORDERABLES Final Result REFERENCE LAB [facility] [address] [place] [phone], [place] * Urinalysis With Microscopic (10/07/2022 8:45 AM PST) Color, UA YELLOW YELLOW 10/07/2022 10:05 PM PST [facility]FERENCE LAB [facility] Clarity, Urine CLEAR CLEAR 10/07/2022 10:05 PM PST REFERENCE LAB [facility] Specific [place], Urine 1.019 1.001 - 1.035 10/07/2022 10:05 PM PST REFERENCE LAB [facility] pH, Urine 6.0 5.0 - 8.0 10/07/2022 10:05 PM PST REFERENCE LAB [facility] Glucose, UA NEGATIVE NEGATIVE 10/07/2022 10:05 PM PST REFERENCE LAB [facility] Bilirubin, UA NEGATIVE NEGATIVE 10/07/2022 10:05 PM PST REFERENCE LAB [facility] Ketones, UA NEGATIVE NEGATIVE 10/07/2022 10:05 PM PST REFER[facility] LAB [facility] Blood, UA NEGATIVE NEGATIVE 10/07/2022 10:05 PM PST REFER[facility] LAB [facility] Protein, UA NEGATIVE NEGATIVE 10/07/2022 10:05 PM PST REFERENCE LAB [facility] Nitrite, UA NEGATIVE NEGATIVE 10/07/2022 10:05 PM PST REFERENCE LAB [facility] Leukocyte esterase, UA NEGATIVE NEGATIVE 10/07/2022 10:05 PM PST REFERENCE LAB [facility] WBC, UA NONE SEEN < OR = 5 /HPF 10/07/2022 10:05 PM PST REFERENCE LAB [facility] RBC, UA NONE SEEN < OR = 2 /HPF 10/07/2022 10:05 PM PST REFERENCE LAB [facility] Squamous epithelial, UA NONE SEEN < OR = 5 /HPF 10/07/2022 10:05 PM PST [facility]FER[facility] LAB [facility] Bacteria, UA NONE SEEN NONE SEEN /HPF 10/07/2022 10:05 PM PST [facility]FER[facility] LAB [facility] Hyaline cast, UA NONE SEEN NONE SEEN /LPF 10/07/2022 10:05 PM PST [facility]FER[facility] LAB [facility] Note: See Below 10/07/2022 10:05 PM PST [facility]FER[facility] Comment: This urine was analyzed for the presence of WBC, RBC, bacteria, casts, and other formed elements. Only those elements seen were reported. Urine Collection / Unknown 10/07/2022 8:45 AM PST 10/07/2022 12:03 PM PST Narrative REFER[facility] LAB [facility] - 10/07/2022 10:05 PM PST Performing Organization Information: ?Site ID: EN ?Name: [facility] ?Address: [address] [place] [address] ?Director: HAYLEE SYLVESTER MD Petrona Felix MD URINE ORDERABLES Final Result REFERENCE [facility] [address] [place] [address] * PSA, Screen (10/07/2022 8:33 AM PST) PSA, Total 1.27 < OR = 4.00 ng/mL 10/08/2022 10:26 AM PST [facility]FER[facility] Comment: The total PSA value from this assay system is standardized against the WHO standard. The test result will be approximately 20% lower when compared to the equimolar-standardized total PSA (Dejon Moapa). Comparison of serial PSA results should be interpreted with this fact in mind. This test was performed using the Siemens chemiluminescent method. Values obtained from different assay methods cannot be used interchangeably. PSA levels, regardless of value, should not be interpreted as absolute evidence of the presence or absence of disease. Blood Venipuncture / Unknown 10/07/2022 8:33 AM PST 10/07/2022 12:55 PM PST Narrative REFER[facility] LAB [facility] - 10/08/2022 10:26 AM PST Performing Organization Information: ?Site ID: EN ?Name: [facility] ?Address: [address] [place] [address] ?Director: HAYLEE SYLVESTER MD Performing Organization Information: ?Site ID: EN ?Name: [facility] ?Address: [address] [place] [address] ?Director: HAYLEE SYLVESTER MD Petrona Felix MD LAB BLOOD ORDERA BLES Edited Result - Final REFERENCE LAB [address] * (ABNORMAL) Allergens, Panel, Resp Region XIII (10/07/2022 8:33 AM PST) D. Pteronyssinus IgE <0.10 kU/L 07/2022 6:39 PM PST [facility]FERENCE LAB [facility] Allergen Class, Dermatophagoides pteronyssinus 0 10/08/2022 6:39 PM PST REFERENCE LAB [facility] D. Farinae IgE <0.10 kU/L 10/08/2022 6:39 PM PST REFERENCE LAB [facility] Allergen Class, Dermatophagoides farinae 0 10/08/2022 6:39 PM PST REFER[facility] LAB [facility] Penicillium notatum IgE <0.10 kU/L 10/08/2022 6:39 PM PST REFERENCE LAB [facility] Allergen Class, Penicillium notatum 0 10/08/2022 6:39 PM PST [facility]FER[facility] Allergen Cladosporium herbarum IgE <0.10 kU/L 10/08/2022 6:39 PM PST [facility]FER[facility] Allergen Class, Cladosporium herbarium 0 10/08/2022 6:39 PM PST [facility] Aspergillus fumigatus IgE <0.10 kU/L 10/08/2022 6:39 PM PST [facility] Allergen Class, Aspergillus fumigatus 0 10/08/2022 6:39 PM PST [facility] ALLERGEN ALTERNARIA ALTERNATA IGE <0.10 kU/L 10/08/2022 6:39 PM PST [facility] Allergen Class, Alternaria alternata 0 10/08/2022 6:39 PM PST [facility] Cat Dander IgE <0.10 kU/L 10/08/2022 6:39 PM PST [facility] Allergen Class, Cat Dander 0 10/08/2022 6:39 PM PST [facility] Dog Dander IgE <0.10 kU/L 10/08/2022 6:39 PM PST [facility] Allergen Class, Dog Dander 0 10/08/2022 6:39 PM PST [facility] Cockroach,Ige <0.10 kU/L 10/08/2022 6:39 PM PST [facility] Allergen Class, Cockroach 0 10/08/2022 6:39 PM PST [facility] T217 [place], Red <0.10 kU/L 6:39 PM PST [facility] Allergen Class, Wilder 0 10/08/2022 6:39 PM PST [facility] Allergen [place] Tree IgE <0.10 kU/L 10/08/2022 6:39 PM PST [facility] Allergen Class, [place] 0 10/08/2022 6:39 PM PST [facility] Saline Tree 0.70(H) kU/L 10/08/2022 6:39 PM PST [facility] Allergen Class, Saline Tree 2 10/08/2022 6:39 PM PST [facility] [place] Tree IgE <0.10 kU/L 6:39 PM PST [facility]FER[facility] Allergen Class, [place] Tree 0 10/08/2022 6:39 PM PST [facility] Telfair Tree IgE <0.10 kU/L 10/08 6:39 PM PST [facility] Allergen Class, T[place] 0 10/08/2022 6:39 PM PST [facility] Traff[place] Tree IgE <0.10 kU/L 10/08/2022 6:39 PM PST [facility] Allergen Class, Trafford 0 10/08 6:39 PM PST [facility]FER[facility] Elm Tree IgE <0.10 kU/L 10/08/2022 6:39 PM PST [facility] Allergen Class, Elm 0 10/08 6:39 PM PST [facility] Allergen Quincy Tree IgE <0.10 kU/L 10/08/2022 6:39 PM PST [facility] Allergen Class, White Quin[place] 0 10/08/2022 6:39 PM PST [facility] Berm[place] Grass <0.10 kU/L 10/08/2022 6:39 PM PST [facility] Allergen Class, B[place] Grass 0 10/08/2022 6:39 PM PST [facility] Teofilo Grass IgE <0.10 kU/L 022 6:39 PM PST [facility] Allergen Class, Teofilo Grass 0 10/08/2022 6:39 PM PST [facility] Allergen Calin Grass IgE <0.10 kU/L 10/08/2022 6:39 PM PST [facility] Allergen Class, Calin Grass 0 10/08/2022 6:39 PM PST [facility] Common Ragweed IgE <0.10 kU/L 2021 6:39 PM PST [facility] Allergen Class, Common Ragweed 0 10/08/2022 6:39 PM PST [facility] MUGWORT <0.10 kU/L 10/08/2022 6:39 PM PST [facility] Allergen Class, Mugwort 0 10/08/2022 6:39 PM PST [facility] ALLERGEN THISTLE AFGHAN IGE 0.32(H) kU/L 10/08/2022 6:39 PM PST REFERENCE LAB [facility] Allergen Class, Botswanan Thistle 0/1 10/08/2022 6:39 PM PST REFER[facility] Rough Pigweed IgE <0.10 kU/L 022 6:39 PM PST [facility] Allergen Class, Rough Pigweed 0 10/08/2022 6:39 PM PST REFER[facility] Allergen Mouse Urine IgE <0.10 kU/L 10/08/2022 6:39 PM PST REFERENCE LAB [facility] Allergen Class, Mouse Urine Protein 0 10/08/2022 6:39 PM PST REFER[facility] Immunoglobulin IgE 27 <VZ=069 kU/L 10/08/2022 6:39 PM PST REFERENCE LAB [facility] Interpretation See Below 10/08/2022 6:39 PM PST REFERENCE LAB [facility] Comment: Specific ?Level of Allergen IGE Class ?kU/L ? Specific IGE Antibody ----- ? --------- ?0 ?<0.10 ? Absent/Undetectable ??0/1 ?0.10-0.34 ? Very Low Level ??1 ?0.35-0.69 ? Low Level ??2 ?0.70-3.49 ? Moderate Level ??3 ?3.50-17.4 ? High Level ??4 ?17.5-49.9 ? Very High Level ??5 ?50-100 ?Very High Level ??6 ?>100 ?Very High Level The clinical relevance of allergen results of 0.10-0.34 kU/L are undetermined and intended for specialist use. Allergens denoted with a '' include results using one or more analyte specific reagents. In those cases, the test was developed and its analytical performance characteristics have been determined by [facility]. It has not been cleared or approved by the U.S. Food and Drug Administration. This assay has been validated pursuant to the CLIA regulations and is used for clinical purposes. Blood Venipuncture / Unknown 10/07/2022 8:33 AM PST 10/07/2022 12:55 PM PST Narrative REFER[facility] LAB [facility] - 10/08/2022 6:39 PM PST Performing Organization Information: ?Site ID: EN ?[facility] ?Address: [address] [place] [phone] ?Director: HAYLEE SYLVESTER MD Petrona Felix MD LAB BLOOD ORDERA BLES Final Result REFERENCE LAB [facility] [address] [place] [phone], [facility] * (ABNORMAL) Allergen Panel, Adult Food (10/07/2022 8:33 AM PST) [facility] Egg White IgE <0.10 kU/L 10/08/2022 6:33 PM PST [facility]FER[facility] Allergen Class, Egg White 0 10/08/2022 6:33 PM PST [facility] Peanut IgE <0.10 kU/L 10/08/2022 6:33 PM PST REFER[facility] Allergen Class, Peanut 0 10/08/2022 6:33 PM PST [facility] Wheat IgE <0.10 kU/L 10/08/2022 6:33 PM PST [facility]FER[facility] Allergen Class, Wheat 0 10/08/2022 6:33 PM PST REFER[facility] WALNUT-FOOD IGE <0.10 kU/L 6:33 PM PST REFER[facility] Allergen Class, [place]-Food 0 10/08/2022 6:33 PM PST [facility] Codfish IgE <0.10 kU/L 10/08/2022 6:33 PM PST [facility] Allergen Class, Codfish 0 10/08/2022 6:33 PM PST [facility] Cow's Milk IgE <0.10 kU/L 10/08/2022 6:33 PM PST REFERENCE LAB [facility] Allergen Class, Cow's Milk 0 10/08/2022 6:33 PM PST REFER[facility] Soybean IgE <0.10 kU/L 10/08/2022 6:33 PM PST RE[facility] Allergen Class, Soybean 0 10/08/2022 6:33 PM PST RE[facility] Shrimp IgE <0.10 kU/L 10/08/2022 6:33 PM PST RE[facility] Allergen Class, Shrimp 0 10/08/2022 6:33 PM PST RE[facility] Scallop IgE <0.10 kU/L 10/08/2022 6:33 PM PST RE[facility] Allergen Class, Scallop 0 10/08/2022 6:33 PM PST RE[facility] Allergen Sesame Seed IgE <0.10 kU/L 10/08/2022 6:33 PM PST RE[facility] Allergen Class, Sesame Seed 0 10/08/2022 6:33 PM PST [facility] Allergen, Hazelnut IgE 0.12(H) kU/L 10/08/2022 6:33 PM PST RE[facility] Allergen Class, Hazelnut 0/1 10/08/2022 6:33 PM PST [facility] CASHEW IGE <0.10 kU/L 10/08/2022 6:33 PM PST RE[facility] Allergen Class, Cashew Nut 0 10/08/2022 6:33 PM PST RE[facility] ALMONDS <0.10 kU/L 10/08/2022 6:33 PM PST RE[facility] Allergen Class, Summer Shade 0 10/08/2022 6:33 PM PST [facility] Allergen [place] IgE <0.10 kU/L 10/08 6:33 PM PST RE[facility] Allergen Class, [place] 0 10/08/2022 6:33 PM PST RE[facility] Tuna IgE <0.10 kU/L 10/08/2022 6:33 PM PST RE[facility] Allergen Class, Tuna 0 10/08/2022 6:33 PM PST [facility] Interpretation See Below 10/08/2022 6:33 PM PST RE[facility] Comment: Specific ?Level of Allergen IGE Class ?kU/L ? Specific IGE Antibody ----- ? --------- ?0 ?<0.10 ? Absent/Undetectable ??0/1 ?0.10-0.34 ? Very Low Level ??1 ?0.35-0.69 ? Low Level ??2 ?0.70-3.49 ? Moderate Level ??3 ?3.50-17.4 ? High Level ??4 ?17.5-49.9 ? Very High Level ??5 ?50-100 ?Very High Level ??6 ?>100 ?Very High Level The clinical relevance of allergen results of 0.10-0.34 kU/L are undetermined and intended for specialist use. Allergens denoted with a '' include results using one or more analyte specific reagents. In those cases, the test was developed and its analytical performance characteristics have been determined by [facility]. It has not been cleared or approved by the U.S. Food and Drug Administration. This assay has been validated pursuant to the CLIA regulations and is used for clinical purposes. Blood Venipuncture / Unknown 10/07/2022 8:33 AM PST 10/07/2022 12:55 PM PST Narrative REFER[facility] - 10/08/2022 6:33 PM PST Performing Organization Information: ?Site ID: EN ?[facility] ?Address: [address] [place] [phone] ?Director: HAYLEE SYLVESTER MD us Petrona Felix MD LAB BLOOD ORDERA BLES Final Result REFERENCE LAB [employer] [facility] [address] [place] [phone], [place] * (ABNORMAL) Vitamin D, Deficiency Screen (25-Hydroxy) (10/07/2022 8:33 AM PST) [facility] Signature 25-Hydroxy D, Total 27(L) 30 - 100 ng/mL 10/07/2022 10:54 PM PST REFERENCE LAB [facility] Comment: Vitamin D Status ? 25-OH Vitamin D: Deficiency: ?<20 ng/mL Insufficiency: ? 20 - 29 ng/mL Optimal: ? > or = 30 ng/mL For 25-OH Vitamin D testing on patients on D2-supplementation and patients for whom quantitation of D2 and D3 fractions is required, the QuestAssureD(TM) 25-OH VIT D, (D2,D3), LC/MS/MS is recommended: order code 49444 (patients >2yrs). See Note 1 Note 1 For additional information, please refer to http://education.DealitLive.com/faq/LXP896 (This link is being provided for informational/ educational purposes only.) Blood Venipuncture / Unknown 10/07/2022 8:33 AM PST 10/07/2022 12:55 PM PST Narrative REFER[facility] - 10/07/2022 10:54 PM PST Performing Organization Information: ?Site ID: EN ?[facility] ?Address: [address] [place] [phone] ?Director: HAYLEE SYLVESTER MD Petrona Felix MD LAB BLOOD ORDERA BLES Final Result Performing Organization Address [facility] de Phone Number REFERENCE LAB [facility] [address] [place] [address] * TSH (10/07/2022 8:33 AM PST) Pathologist [facility] TSH 4.25 0.40 - 4.50 mIU/L 10/07/2022 10:54 PM PST REFERENCE LAB [facility] Blood Venipuncture / Unknown 10/07/2022 8:33 AM PST 10/07/2022 12:55 PM PST Narrative REFERENCE LAB [facility] - 10/07/2022 10:54 PM PST Performing Organization Information: ?Site ID: EN ?Name: [facility] ?Address: [address] [place] [address] ?Director: HAYLEE SYLVESTER MD Petrona Felix MD LAB BLOOD ORDERA BLES Final Result Performing Organization Address [facility] de Phone Number REFERENCE LAB [facility] [address] [place] [phone] [place] [address] * (ABNORMAL) Lipid Panel (10/07/2022 8:33 AM PST) Cholesterol 272(H) <200 mg/dL 10/08/2022 10:26 AM PST REFERENCE LAB [facility] HDL Cholesterol 69 > OR = 40 mg/dL 10/08/2022 10:26 AM PST REFERENCE LAB [facility] Triglycerides 91 <150 mg/dL 10/08/2022 10:26 AM PST REFERENCE LAB [facility] LDL, Calculated 182(H) mg/dL (calc) 10/08/2022 10:26 AM PST REFERENCE LAB [facility] Comment: Reference range: <100 Desirable range <100 mg/dL for primary prevention; ?? <70 mg/dL for patients with CHD or diabetic patients with > or = 2 CHD risk factors. LDL-C is now calculated using the Patty calculation, which is a validated novel method providing better accuracy than the Friedewald equation in the estimation of LDL-C. Rich ROSADO et al. RAFAELA. 2013;310(19): 4077-2372 (http://education.Aircrm.[employer]/faq/TGZ833) Chol/HDL Ratio 3.9 <5.0 (calc) 10/08/2022 10:26 AM PST REFERENCE LAB [facility] Non-HDL Cholesterol 203(H) <130 mg/dL (calc) 10/08/2022 10:26 AM PST REFERENCE LAB [facility] Comment: For patients with diabetes plus 1 major ASCVD risk factor, treating to a non-HDL-C goal of <100 mg/dL (LDL-C of <70 mg/dL) is considered a therapeutic option. Blood Venipuncture / Unknown 10/07/2022 8:33 AM PST 10/07/2022 12:55 PM PST Narrative REFERENCE LAB [facility] - 10/08/2022 10:26 AM PST Performing Organization Information: ?Site ID: EN ?Name: [facility] ?Address: [address] [place] [address] ?Director: HAYLEE SYLVESTER MD Petrona Felix MD LAB BLOOD ORDERA BLES Final Result REFERENCE LAB [facility] [address] [place] [address] * Hepatitis C Ab (10/07/2022 8:33 AM PST) Hepatitis C Ab NON-REACT FARSHAD NON-REACT FARSHAD 10/08/2022 4:44 PM PST REFER[facility] LAB [facility] Signal/Cutoff 0.07 <1.00 10/08/2022 4:44 PM PST REFER[facility] LAB [facility] Comment: HCV antibody was non-reactive. There is no laboratory evidence of HCV infection. In most cases, no further action is required. However, if recent HCV exposure is suspected, a test for HCV RNA (test code 91499) is suggested. For additional information please refer to http://education.Peer.im/faq/GCT34b9 (This link is being provided for informational/ educational purposes only.) Blood Venipuncture / Unknown 10/07/2022 8:33 AM PST 10/07/2022 12:55 PM PST Narrative REFER[facility] LAB [facility] - 10/08/2022 4:44 PM PST Performing Organization Information: ?Site ID: EN ?Name: [facility] ?Address: [address] [place] [address] ?Director: HAYLEE SYLVESTER MD Petrona Felix MD LAB BLOOD ORDERA BLES Final Result [facility] [address] [place] [address] * Hepatic Function Panel (10/07/2022 8:33 AM PST) Protein, Total 7.1 6.1 - 8.1 g/dL 10/08/2022 10:26 AM PST REFER[facility] LAB [facility] Albumin 4.5 3.6 - 5.1 g/dL 10/08/2022 10:26 AM PST REFER[facility] LAB [facility] Globulin, Total 2.6 1.9 - 3.7 g/dL (calc) 10/08/2022 10:26 AM PST REFER[facility] LAB [facility] A/G Ratio 1.7 1.0 - 2.5 (calc) 10/08/2022 10:26 AM PST REFER[facility] LAB [facility] BILIRUBIN, TOTAL 0.6 0.2 - 1.2 mg/dL 10/08/2022 10:26 AM PST REFER[facility] LAB [facility] Bilirubin Direct 0.1 < OR = 0.2 mg/dL 10/08/2022 10:26 AM PST REFER[facility] LAB [facility] Bilirubin Indirect 0.5 0.2 - 1.2 mg/dL (calc) 10/08/2022 10:26 AM PST REFER[facility] LAB [facility] ALK PHOS 78 35 - 144 U/L 10/08/2022 10:26 AM PST REFER[facility] LAB [facility] AST (SGOT) (REF) 24 10 - 35 U/L 10/08/2022 10:26 AM PST [facility] ALT (SGPT) (REF) 33 9 - 46 U/L 10/08/2022 10:26 AM PST REFER[facility] LAB [facility] Blood Venipuncture / Unknown 10/07/2022 8:33 AM PST 10/07/2022 12:55 PM PST Narrative REFER[facility] LAB [facility] - 10/08/2022 10:26 AM PST Performing Organization Information: ?Site ID: EN ?Name: [facility] ?Address: [address] [place] [address] ?Director: HAYLEE SYLVESTER MD Petrona Felix MD LAB BLOOD ORDERA BLES Final Result [facility] [address] [place] [address] * CBC with Differential (10/07/2022 8:33 AM PST) [facility] WBC 6.6 3.8 - 10.8 Thousand/u L 10/08/2022 8:24 AM PST REFER[facility] LAB [facility] Red Blood Cells 5.01 4.20 - 5.80 Million/uL 10/08/2022 8:24 AM PST REFER[facility] LAB [facility] Hemoglobin 15.4 13.2 - 17.1 g/dL 10/08/2022 8:24 AM PST [facility] Hct 45.7 38.5 - 50.0 % 10/08/2022 8:24 AM PST RE[facility] MCV 91.2 80.0 - 100.0 fL 10/08/2022 8:24 AM PST [facility] MCH 30.7 27.0 - 33.0 pg 10/08/2022 8:24 AM PST [facility] MCHC 33.7 32.0 - 36.0 g/dL 10/08/2022 8:24 AM PST [facility] RDW 12.4 11.0 - 15.0 % 10/08/2022 8:24 AM PST [facility] Platelet Count 281 140 - 400 Thousand/u L 10/08/2022 8:24 AM PST [facility] MPV 10.7 7.5 - 12.5 fL 10/08/2022 8:24 AM PST [facility] Absolute Neutrophils 3683 1500 - 7800 cells/uL 10/08/2022 8:24 AM PST [facility] Absolute Lymphocytes 2152 850 - 3900 cells/uL 10/08/2022 8:24 AM PST [facility] Absolute Monocytes 614 200 - 950 cells/uL 10/08/2022 8:24 AM PST [facility] Absolute Eosinophils 112 15 - 500 cells/uL 10/08/2022 8:24 AM PST [facility] Absolute Basophils 40 0 - 200 cells/uL 10/08/2022 8:24 AM PST [facility] % Neutrophils 55.8 % 10/08/2022 8:24 AM PST [facility] % Lymphocytes 32.6 % 10/08/2022 8:24 AM PST [facility] % Monocytes 9.3 % 10/08/2022 8:24 AM PST [facility] % Eosinophils 1.7 % 10/08/2022 8:24 AM PST [facility] % Basophils 0.6 % 10/08/2022 8:24 AM PST [facility] Blood Venipuncture / Unknown 10/07/2022 8:33 AM PST 10/07/2022 9:37 AM PST Narrative REFERENCE LAB [facility] - 10/08/2022 8:24 AM PST Performing Organization Information: ?Site ID: EN ?Name: [facility] ?Address: [address] [place] [phone] ?Director: HAYLEE SYLVESTER MD Performing Organization Information: ?Site ID: EN ?Name: [facility] ?Address: [address] [place] [phone] ?Director: HAYLEE SYLVESTER MD Petrona Felix MD LAB BLOOD ORDERA BLES Edited Result - Final REFERENCE LAB [facility] [address] [place] [address] * (ABNORMAL) Basic Metabolic Panel (10/07/2022 8:33 AM PST) [facility] Signature Glucose 101(H) 65 - 99 mg/dL 10/08/2022 10:26 AM [facility] REFERENCE LAB [facility] Comment: ? Fasting reference interval For someone without known diabetes, a glucose value between 100 and 125 mg/dL is consistent with prediabetes and should be confirmed with a follow-up test. BUN 14 7 - 25 mg/dL 10/08/2022 10:26 AM PST REFERENCE LAB [facility] Creatinine 1.29 0.70 - 1.30 mg/dL 10/08/2022 10:26 AM PST REFER[facility] LAB [facility] eGFR 68 > OR = 60 mL/min/1. 73m2 10/08/2022 10:26 AM PST REFER[facility] LAB [facility] Comment: The eGFR is based on the CKD-EPI 2020 equation. To calculate the new eGFR from a previous Creatinine or Cystatin C result, go to https://www.kidney.org/professionals/ kdoqi/gfr%5Fcalculator BUN/Creatinine Ratio NOT APPLICABLE (calc) 10/08/2022 10:26 AM PST REFER[facility] LAB [facility] Sodium 145 135 - 146 mmol/L 10/08/2022 10:26 AM PST REFER[facility] LAB [facility] Potassium 4.6 3.5 - 5.3 mmol/L 10/08/2022 10:26 AM PST REFER[facility] LAB [facility] Chloride 106 98 - 110 mmol/L 10/08/2022 10:26 AM PST REFER[facility] LAB [facility] Carbon dioxide 22 20 - 32 mmol/L 10/08/2022 10:26 AM PST REFER[facility] LAB [facility] Calcium 10.3 8.6 - 10.3 mg/dL 10/08/2022 10:26 AM PST REFER[facility] LAB [facility] Blood Venipuncture / Unknown 10/07/2022 8:33 AM PST 10/07/2022 12:55 PM PST Narrative REFER[facility] LAB [facility] - 10/08/2022 10:26 AM PST Performing Organization Information: ?Site ID: EN ?Name: [facility] ?Address: [address] [place] [address] ?Director: HAYLEE SYLVESTER MD Petrona Felix MD LAB BLOOD ORDERA BLES Final Result Performing Organization Address City/State/[facility] Co de Phone Number REFERENCE LAB [facility] [address] [place] [address] * Hemoglobin A1C (10/07/2022 8:33 AM PST) Hemoglobin A1c 5.3 <5.7 % of total Hgb 10/08/2022 8:24 AM PST REFERENCE LAB [facility] Comment: For the purpose of screening for the presence of diabetes: <5.7% ? Consistent with the absence of diabetes 5.7-6.4% ?Consistent with increased risk for diabetes ?(prediabetes) > or =6.5% ??Consistent with diabetes This assay result is consistent with a decreased risk of diabetes. Currently, no consensus exists regarding use of hemoglobin A1c for diagnosis of diabetes in children. According to [place] [employer] Association (ADA) guidelines, hemoglobin A1c <7.0% represents optimal control in non- diabetic patients. Different metrics may apply to specific patient populations. Standards of Medical Care in Diabetes(ADA). ?? Estimated Average Glucose 105 mg/dL 10/08/2022 8:24 AM PST REFERENCE LAB [facility] Estimated Average Glucose 5.8 mmol/L 10/08/2022 8:24 AM PST REFER[facility] LAB [facility] Blood Venipuncture / Unknown 10/07/2022 8:33 AM PST 10/07/2022 9:37 AM PST Narrative REFER[facility] LAB [facility] - 10/08/2022 8:24 AM PST Performing Organization Information: ?Site ID: EN ?[facility] ?Address: [address] [place] [address] ?Director: HAYLEE SYLVESTER MD Petrona Felix MD LAB BLOOD ORDERA BLES Final Result REFERENCE LAB [facility] [address] [place] [address] documented in this encounter Visit Diagnoses Diagnosis Annual physical exam- Primary Routine general medical examination at a health care facility Depression, unspecified depression type Postnasal drip Deviated septum Deviated nasal septum Snoring Other dyspnea and respiratory abnormality documented in this encounter Additional Health Concerns Assessment Noted Time PHQ-9 Depression Total Score: 4 10/01/20 22 11:36 AM PST documented as of this encounter Care Teams Enterer Relationship Specialty Start Date End Date Petrona Felix MD [address] [place] [address] PCP - General Family Medicine 10/01/22 documented as of this encounter
--- OUTSIDE RECORDS SUMMARY | 2024-11-06 03:33 | XMS_ITS | Encounter Summary ---
Author Organization [facility] Address [address] [address] Care Team Providers Care Wardrobe Attendant Name Role Phone Petrona Felix MD Primary Care Pr ovider Encounter Details Date Type Department Care Team (Late st Contact Info) Description 12/20/2023 Infectious Risk Screen [facility] [address] [phone] Social History Tobacco Use Types Packs/Day Years [...] documented as of this encounter Care Teams Wardrobe Attendant Relationship Specialty Start Date End Date Petrona Felix MD [address] [place] [address] PCP - General Family Medicine 10/01/22 documented as of this encounter
--- OUTSIDE RECORDS SUMMARY | 2024-11-06 03:33 | XMS_ITS | Encounter Summary ---
Author Organization [facility] Address [address] [address] Care Team Providers Care Internet Architect Name Role Phone Petrona Felix MD Primary Care Pr ovider Encounter Details Date Type Department Care Team (Late st Contact Info) Description 10/18/2022 Infectious Risk Screen [facility] Internal Medicine [address] [phone] Social History Tobacco Use Types Packs/Day Years [...] documented as of this encounter Care Teams Internet Architect Relationship Specialty Start Date End Date Petrona Felix MD [address] [place] [address] PCP - General Family Medicine 10/01/22 documented as of this encounter
--- OUTSIDE RECORDS SUMMARY | 2024-11-06 03:33 | XMS_ITS | Encounter Summary ---
Author Organization [facility] Address [address] [address] Care Team Providers Care Milk Treater Name Role Phone Unavailable Primary Care Provider Unavailabl e Encounter Details Date Type Department Care Team (Late st Contact Info) Description 09/20/2022 Infectious Risk Screen [facility] [address] [place] [phone] Social History Tobacco Use Types Packs/Day Years [...]
--- OUTSIDE RECORDS SUMMARY | 2024-11-06 03:33 | XMS_ITS | Encounter Summary ---
Author Organization [facility] Address [address] [address] Care Team Providers Care Brim Cutter Name Role Phone Petrona Felix MD Primary Care Pr ovider Encounter Details Date Type Department Care Team (Late st Contact Info) Description 12/27/2023 Infectious Risk Screen [facility] Internal Medicine [address] [phone] Social History Tobacco Use Types Packs/Day Years [...] documented as of this encounter Care Teams Brim Cutter Relationship Specialty Start Date End Date Petrona Felix MD [address] [place] [address] PCP - General Family Medicine 10/01/22 documented as of this encounter
--- OUTSIDE RECORDS SUMMARY | 2024-11-06 03:33 | XMS_ITS | Encounter Summary ---
Author Organization [facility] Address [address] [address] Care Team Providers Care Messenger Floorperson Name Role Phone Petrona Felix MD Primary Care Pr ovider Encounter Details Date Type Department Care Team (Late st Contact Info) Description 01/04/2024 Infectious Risk Screen [facility] Internal Medicine [address] [phone] Social History Tobacco Use Types Packs/Day Years [...] documented as of this encounter Care Teams Messenger Floorperson Relationship Specialty Start Date End Date Petrona Felix MD [address] [place] [address] PCP - General Family Medicine 10/01/22 documented as of this encounter
--- OUTSIDE RECORDS SUMMARY | 2024-11-06 03:33 | XMS_ITS | Encounter Summary ---
Author Organization [facility] Address [address] [address] Care Team Providers Care Liquid Sugar Fortifier Name Role Phone Petrona Felix MD Primary Care Pr ovider Encounter Details Date Type Department Care Team (Late st Contact Info) Description 10/07/2022 Infectious Risk Screen [facility] [address] [phone] Social History Tobacco Use Types Packs/Day Years [...] documented as of this encounter Care Teams Liquid Sugar Fortifier Relationship Specialty Start Date End Date Petrona Felix MD [address] [place] [address] PCP - General Family Medicine 10/01/22 documented as of this encounter
--- OUTSIDE RECORDS SUMMARY | 2024-11-06 03:33 | XMS_ITS | Encounter Summary ---
Author Organization [facility] Address [address] [address] Care Team Providers Care Window And Siding Craftsman Name Role Phone Petrona Felix MD Primary Care Pr ovider Reason for Visit * Reason Onset Date Comments Lab Results 01/16/2024 Encounter Details Date Type Department Care Team (Late st Contact Info) Description 01/16/2024 Telephone [facility] Internal Medicine [facility] [address] [phone] Petrona Felix MD [address] [place] [address] Lab Results Social History Tobacco Use Types Packs/Day [...] encounter Miscellaneous Notes * Telephone Encounter - Margot Waller Photography Instructor - 01/16/2024 2:12 PM PDT Called and spoke to patient informed of results Electronically signed by: Dee Araiza 01/16/2024 2:12 PM PDT * Telephone Encounter - Dee Araiza Assistant - 01/16/2024 2:12 PM PDT ----- Message from Petrona Felix MD sent at 01/16/2024 10:59 AM PDT ----- In normal range documented in this encounter Plan of Treatment Not on file documented as of this encounter Visit Diagnoses Not on filedocumented in this encounter Additional Health Concerns Assessment Noted Time PHQ-9 Depression Total Score: 4 10/01/20 22 11:36 AM PST PHQ-2 Depression Total Score: 0 12/19/19 24 8:48 PM PST documented as of this encounter Care Teams Window And Siding Craftsman Relationship Specialty Start Date End Date Petrona Felix MD [address] [place], [place] [phone] PCP - General Family Medicine 10/01/22 documented as of this encounter
--- OUTSIDE RECORDS SUMMARY | 2024-11-06 03:33 | XMS_ITS | Encounter Summary ---
Author Organization [facility] Address [address] [place] [address] Phone Care Team Providers Care Superintendent Production Name Role Phone Luan Bond MD Primary Care Provider [phone] Encounter Details Date Type Department Care Team (Late st Contact Info) Description 05/18/2012 Orders Only OUTREACH SPECIMEN [address] [place] [address] Luan Bond MD [address] [facility] [address] [place] [address] [place], [place] [phone] Social History Tobacco Use Types Packs/Day Years [...] Procedure Name Priority Date/Time Associated Diagnosis Comments XR KNEE WEIGHT BEARING 2 VIEWS UNILATERAL Routine 05/18/2012 11:22 AM PDT documented in this encounter Results * XRAY KNEE WEIGHT BEARING 2 VIEWS UNILATERAL (05/18/2012 11:22 AM PDT) Anatomical Region Laterality Modality Other RIGHT 05/18/2012 11:2 2 AM PDT Narrative 05/18/2012 1:42 PM PDT ?[facility] ? OUTPATIENT RADIOLOGY REPORT ?Verified ?Ordering Physician: ?MRN #: ? Patient Name: ?LUAN GABRIEL-V, ? [id number] ?SEAN, AZALEA ?QuadRIS Order #: ? Location: ?Date of : ?[id number] ? 1970 ?SEAN, AZALEA T ?ORDER#: ??[id number] ?RIGHT KNEE, TWO VIEWS ??05/18/2012 AT 0824 HOURS ?REFERENCE: ??None. ?INDICATION: ??Right knee pain. ?FINDINGS: ??The alignment and joint spaces are normal. ??There is no ?fracture or focal osseous lesion. ??The soft tissue planes are ?grossly unremarkable. ??No joint effusion is identified. ?IMPRESSION: ??Unremarkable exam. ?[id number] ?JOB#: [id number] ? Reviewed and Interpreted by: ? ABHISHEK VIDAL, ??/ ? , ? Imaging Physician ? Electronically verified by: ABHISHEK VIDAL, ? CSN# ? [id number] ?Result ID: [id number] ? Procedure Note Abhishek Vidal MD - 05/18/2012 [facility] OUTPATIENT RADIOLOGY REPORT Verified Ordering Physician: MRN #: Patient Name: LUAN DOMINGUEZ, [id number] AZALEA ESTRADA Order #: Location: Date of : [id number] 1970 AZALEA ESTRADA RIGHT KNEE, TWO VIEWS 05/18/2012 AT 0824 HOURS REFERENCE: None. INDICATION: Right knee pain. FINDINGS: The alignment and joint spaces are normal. There is no fracture or focal osseous lesion. The soft tissue planes are grossly unremarkable. No joint effusion is identified. IMPRESSION: Unremarkable exam. [id number] JOB#: [id number] Reviewed and Interpreted by: ABHISHEK VIDAL, / , Imaging Physician Electronically verified by: ALONZO JERONIMO# [id number] Result ID: [id number] us Luan Bond MD DIAGNOSTIC IMAGING ORDERABLES F inal Result documented in this encounter Visit Diagnoses Not on filedocumented in this encounter Care Teams Superintendent Production Relationship Specialty Start Date End Date Luan Bond MD [address] [facility] [address] [facility] [place] [address] [place], [place] [phone] PCP - General 04/14/12 documented as of this encounter
--- OUTSIDE RECORDS SUMMARY | 2024-11-06 03:33 | XMS_ITS | Encounter Summary ---
Author Organization [facility] Address [address] [address] Care Team Providers Care Financial Planner Name Role Phone Petrona Felix MD Primary Care Pr ovider Reason for Visit * Reason Comments Results Encounter Details Date Type Department Care Team (Latest Contact Info) Description 10/19/2022 9:00 AM PST Virtual Office Visit [facility] Internal Medicine [place] [address] [phone] Petrona Felix MD [address] [place] [address] Hypercholesterolemia ; Vitamin D deficiency; Positive allergy test Social History Tobacco Use Types Packs/Day Years [...] Progress Notes * Petrona Felix MD - 10/19/2022 9:00 AM PST [facility] INTERNAL MEDICINE PROGRESS NOTE Patient Name: David Fairchild (Tom) Age: 52 y.o. : 1970 Author: Petrona Felix MD Date of Encounter: 10/19/2022 Chief Complaint/HPI: David Fairchild (Tom) is a 52 y.o. male who presents with Results ASSESSMENT & PLAN: 1. Hypercholesterolemia Assessment & Plan: Patient declined treatment, aware of the risks associated with not treating the medical problem including risk of . Your cholesterol is high please avoid processed food, carbohydrates, take fish oil and flexseed oiland will recheck the lipid again in 3- 6 months Orders: - Hepatic Function Panel; Future; Expected date: 01/17/2023 - Lipid Panel, Direct LDL, Reflex; Future; Expected date: 01/17/2023 2. Vitamin D deficiency Assessment & Plan: Your vitamin D was slightly low, please take 2000 - units of vitamin D daily which is an over the counter medication and repeat the level again in 6 months Please call before you came to the lab for the order to be placed 3. Positive allergy test Assessment & Plan: Mild allergies, patient aware, has no symptoms, will have over the counter medication and if any problems will go to UC/ER and call clinic back FOLLOW UP: No follow-ups on file. Sooner if necessary, or as discussed. Date of Last Screening 10/01/2022 PHQ9 Depression scale: Total Score 4 PHQ-9 (QUESTION 9) 10/01/2022 PHQ-9 Thoughts that you would be better off , or of hurting yourself in some way? 0 Click Here For Flowsheet ACTIVE PROBLEMS: Patient Active Problem List Diagnosis Depression Annual physical exam Postnasal drip Deviated septum Snoring Hypercholesterolemia Vitamin D deficiency Positive allergy test MEDICATIONS: No current outpatient medications on file prior to visit. No current facility-administered medications on file prior to visit. Patient's Medications No medications on file ROS There were no vitals taken for this visit.There is no height or weight on file to calculate BMI. BP Readings from Last 2 Encounters: 10/01/22 113/71 Physical Exam CONSTITUTIONAL: Conversant, and in no acute distress. Alert and Oriented x 3. PSYCH: Judgment and insight good. Normal mood and affect. Recent memory is good. Answers questions appropriately. Coding by Medical Decision Making (MDM) or Time 2020 Guidelines Prolonged Care Coding Definitions Audio Encounters 02444 5-10 minutes 07428 11-20 minutes 42515 21-30 minutes [id number]-cn-[id number] and Video Encounters New patients Total Time 15369 15-29 minutes 17382 30-44 minutes 40783 45-59 minutes 17913 60-74 minutes Established Patients Total Time 28628 10-19 minutes 04035 20-29 minutes 69072 30-39 minutes 36917 40-54 minutes VISIT TYPE & CODING: -- VIRTUAL VIDEO VISIT: I spent a total of 30 minutes in chart review, [id number] time, post-visit documentation and other services detailed [...] understood the benefits (safety, convenience) and risks (geospatial information scientist issues, quipment problems, audio and video difficulties) to this service. documented in this encounter Miscellaneous Notes * Assessment & Plan Note - Petrona Felix MD - 10/19/2022 9:08 AM PSTAssociated Problem(s): Positive allergy test Mild allergies, patient aware, has no symptoms, will have over the counter medication and if any problems will go to UC/ER and call clinic back * Assessment & Plan Note - Petrona Felix MD - 10/19/2022 9:06 AM PSTAssociated Problem(s): Vitamin D deficiency Your vitamin D was slightly low, please take 2000 - units of vitamin D daily which is an over the counter medication and repeat the level again in 6 months Please call before you came to the lab for the order to be placed * Assessment & Plan Note - Petrona Felix MD - 10/19/2022 8:55 AM PSTAssociated Problem(s): Hypercholesterolemia Patient declined treatment, aware of the risks associated with not treating the medical problem including risk of . Your cholesterol is high please avoid processed food, carbohydrates, take fish oil and flexseed oiland will recheck the lipid again in 3- 6 months documented in this encounter Plan of Treatment Scheduled Orders Name Type Priority Associated Diagnoses Orde r Schedule Lipid Panel, Direct LDL, Reflex Lab Routine Hypercholesterolemia Expected: 01/17/2023 (Approximate), Expires: 04/19/2024 documented as of this encounter Results * Hepatic Function Panel (12/20/2023 10:15 AM PST) Pathologist [facility] Protein, Total 6.8 6.1 - 8.1 g/dL 12/21/2023 12:03 AM PST [facility] Albumin 4.4 3.6 - 5.1 g/dL 12/21/2023 12:03 AM PST [facility] Globulin, Total 2.4 1.9 - 3.7 g/dL (calc) 12/21/2023 12:03 AM PST [facility] A/G Ratio 1.8 1.0 - 2.5 (calc) 12/21/2023 12:03 AM PST [facility] BILIRUBIN, TOTAL 0.7 0.2 - 1.2 mg/dL 12/21/2023 12:03 AM PST [facility] Bilirubin Direct 0.1 < OR = 0.2 mg/dL 12/21/2023 12:03 AM PST [facility] Bilirubin Indirect 0.6 0.2 - 1.2 mg/dL (calc) 12/21/2023 12:03 AM PST [facility] ALK PHOS 78 35 - 144 U/L 12/21/2023 12:03 AM PST [facility] AST (SGOT) (REF) 24 10 - 35 U/L 12/21/2023 12:03 AM PST [facility] ALT (SGPT) (REF) 25 9 - 46 U/L 12/21/2023 12:03 AM PST [facility] Blood Venipuncture / Unknown 12/20/2023 10:15 AM PST 12/20/2023 11:13 AM PST Narrative [facility] - 12/21/2023 12:03 AM PST Performing Organization Information: ?Site ID: [id number] ?Name: [facility] ?Address: [address] [place], [place] [phone] ?Director: HAYLEE SYLVESTER MD Petrona Felix MD LAB BLOOD ORDERA BLES Final Result Performing Organization Address City/State/[facility] Co de Phone Number REFERENCE [facility] [address] [place] [address] documented in this encounter Visit Diagnoses Diagnosis Hypercholesterolemia Pure hypercholesterolemia Vitamin D deficiency Unspecified vitamin D deficiency Positive allergy test documented in this encounter Additional Health Concerns Assessment Noted Time PHQ-9 Depression Total Score: 4 10/01/20 22 11:36 AM PST documented as of this encounter Care Teams Financial Planner Relationship Specialty Start Date End Date Petrona Felix MD [address] [place] [address] PCP - General Family Medicine 10/01/22 documented as of this encounter
--- OUTSIDE RECORDS SUMMARY | 2024-11-06 03:33 | XMS_ITS | Continuity of Care Document ---
Author Organization [facility] Address [address] [address] Care Team Providers Care [employer] Technician Name Role Phone Petrona Felix MD Primary Care Pr ovider Encounters Date Type Department Care Team Description 06/05/2024 4:00 PM PDT Virtual Office Visit [facility] [address] [phone] Petrona Felix MD COVID-19 virus infection (Primary Dx); Fever, unspecified fever cause; Sneezing 06/04/[address] [facility] [address] [phone] Petrona Felix MD Covid Question 01/16/2024 Telephone [facility] [address] [phone] Petrona Felix MD Lab Results 01/04/2024 Infectious Risk Screen [facility] [address] [phone] 01/04/2024 Infectious Risk Screen [facility] [address] [place] [phone] 01/04/2024 9:00 AM PST Office Visit [facility] [address] [place] [phone] Petrona Felix MD Hypercholesterolemia (Primary Dx); Numerous moles; Vitamin D deficiency 12/27/2023 Infectious Risk Screen [facility] [address] [place] [phone] 12/20/[address] [facility] [address] [place] [phone] 12/20/[address] [facility] [address] [place] [phone] 12/20/2023 9:20 AM PST Office Visit [facility] [address] [place] [phone] Petrona Felix MD Annual physical exam (Primary Dx); Vitamin D deficiency; Hypercholesterolemia; Chronic cough 12/02/2023 Infectious Risk Screen 10/19/2022 Infectious Risk Screen [facility] [address] [place] [phone] 10/19/2022 9:00 AM PST Virtual Office Visit [facility] [address] [place] [address] [phone] Petrona Felix MD Hypercholesterolemia; Vitamin D deficiency; Positive allergy test 10/18/2022 Infectious Risk Screen [facility] [address] [place] [address] [phone] 10/11/2022 Infectious Risk Screen [facility] Internal [facility] [address] [place] [phone] 10/11/2022 Telephone [facility] [address] [place] [phone] Petrona Felix MD Results 10/07/[address] [facility] [address] [phone] 10/01/2022 Infectious Risk Screen [place] [id number] [phone] 10/01/2022 11:20 AM [facility] Office Visit [facility] [address] [phone] Petrona Felix MD Annual physical exam (Primary Dx); Depression, unspecified depression type; Postnasal drip; Deviated septum; Snoring 09/20/[address] [facility] [address] [phone] 09/16/2022 Infectious Risk Screen [facility] BUSINESS OFFICE [address] [place] [phone] 12/25/1997 - 12/25/1997 11:59 PM PST Hospital Encounter [facility] GENERIC OP CONVERSION DEPT [address] [place] [phone] Conversion Transaction, Provider Unknown Allergies Active Allergy Reactions Criticality Noted Date Comments Food Other (See Comments) 12/20/2023 Wentworth Bark - post nasal drip Medications benzonatate [...] 11:45 AM PST): No SI or HI [employer] now Feels better now Annual physical exam 10/01/2022 Postnasal drip 10/01/2022 Deviated septum 10/01/2022 Snoring 10/01/2022 Assessment & Plan (10/01/2022 11:48 AM PST): tells him he snores Immunizations Name Administration Dates Next Due INFLUENZA PF, QUADRIVALENT 09/04/2021 INFLUENZA W/PRES QUADRIVALENT 08/04/2020 Family History Medical History Relation Comments Hypertension Father Stroke Father Relation Status Comments Brother Alive Father Alive Maternal Grandfather Maternal Grandmother Mother Alive Social History Smoking Status as of 11/06/2024 Tobacco Use Types Packs/Day Years Used Date Smoking Tobacco: Never Assessed PHQ-2 Answer Date Recorded PHQ-2 Total Score [...] Procedure Name Priority Date/Time Associated Diagnosis Comments TESTOSTERONE, TOTAL AND FREE Routine 01/04/2024 8:18 AM PST Annual physical exam Vitamin D deficiency Hypercholesterolemi a PSA, SCREEN Routine 12/20/2023 10:16 AM PST Annual physical exam Vitamin D deficiency Hypercholesterolemi a VITAMIN D, DEFICIENCY SCREEN (25-HYDROXY) Routine 12/20/2023 10:16 AM PST Annual physical exam Vitamin D deficiency Hypercholesterolemi a TSH Routine 12/20/2023 10:16 AM PST Annual physical exam Vitamin D deficiency Hypercholesterolemi a CULTURE, URINE Routine 12/20/2023 10:16 AM PST Annual physical exam Vitamin D deficiency Hypercholesterolemi a HIV AG/AB, 4TH GEN, REFLEX Routine 12/20/2023 10:15 AM PST Annual physical exam Vitamin D deficiency Hypercholesterolemi a URINALYSIS WITH MICROSCOPIC Routine 12/20/2023 10:15 AM PST Annual physical exam Vitamin D deficiency Hypercholesterolemi a PHOSPHORUS Routine 12/20/2023 10:15 AM PST Annual physical exam Vitamin D deficiency Hypercholesterolemi a LIPID PANEL Routine 12/20/2023 10:15 AM PST Annual physical exam Vitamin D deficiency Hypercholesterolemi a HEMOGLOBIN A1C Routine 12/20/2023 10:15 AM PST Annual physical exam Vitamin D deficiency Hypercholesterolemi a CBC WITH DIFFERENTIAL Routine 12/20/2023 10:15 AM PST Annual physical exam Vitamin D deficiency Hypercholesterolemi a BASIC METABOLIC PANEL Routine 12/20/2023 10:15 AM PST Annual physical exam Vitamin D deficiency Hypercholesterolemi a HEPATIC FUNCTION PANEL Routine 12/20/2023 10:15 AM PST Hypercholesterolemi a URINALYSIS WITH MICROSCOPIC Routine 10/07/2022 8:45 AM PST Depression, unspecified depression type Annual physical exam Postnasal drip Deviated septum Snoring CULTURE, URINE Routine 10/07/2022 8:45 AM PST Depression, unspecified depression type Annual physical exam Postnasal drip Deviated septum Snoring VITAMIN D, DEFICIENCY SCREEN (25-HYDROXY) Routine 10/07/2022 8:33 AM PST Depression, unspecified depression type Annual physical exam Postnasal drip Deviated septum Snoring TSH Routine 10/07/2022 8:33 AM PST Depression, unspecified depression type Annual physical exam Postnasal drip Deviated septum Snoring PSA, SCREEN Routine 10/07/2022 8:33 AM PST Depression, unspecified depression type Annual physical exam Postnasal drip Deviated septum Snoring ALLERGENS, PANEL, RESPIRATORY REGION XIII Routine 10/07/2022 8:33 AM PST Depression, unspecified depression type Annual physical exam Postnasal drip Deviated septum Snoring ALLERGEN PANEL, ADULT FOOD Routine 10/07/2022 8:33 AM PST Depression, unspecified depression type Annual physical exam Postnasal drip Deviated septum Snoring LIPID PANEL Routine 10/07/2022 8:33 AM PST Depression, unspecified depression type Annual physical exam Postnasal drip Deviated septum Snoring HEPATITIS C AB Routine 10/07/2022 8:33 AM PST Depression, unspecified depression type Annual physical exam Postnasal drip Deviated septum Snoring HEPATIC FUNCTION PANEL Routine 10/07/2022 8:33 AM PST Depression, unspecified depression type Annual physical exam Postnasal drip Deviated septum Snoring CBC WITH DIFFERENTIAL Routine 10/07/2022 8:33 AM PST Depression, unspecified depression type Annual physical exam Postnasal drip Deviated septum Snoring BASIC METABOLIC PANEL Routine 10/07/2022 8:33 AM PST Depression, unspecified depression type Annual physical exam Postnasal drip Deviated septum Snoring HEMOGLOBIN A1C Routine 10/07/2022 8:33 AM PST Depression, unspecified depression type Annual physical exam Postnasal drip Deviated septum Snoring Results * Testosterone, Total and Free (01/04/2024 8:18 AM PST) [facility] Testosterone, Total, LC-MS/MS 646 250 - 1100 ng/dL 01/10/2024 3:05 PM PDT [facility] Comment: For additional information, please refer to http://education.[employer]/faq/TotalTestosteroneL CMSMS (This link is being provided for informational/educational purposes only.) Testosterone, Free 87.5 35.0 - 155.0 pg/mL 01/10/2024 3:05 PM PDT [facility] Comment: This test was developed and its analytical performance characteristics have been determined by [employer]. It has not been cleared or approved by FDA. This assay has been validated pursuant to the CLIA regulations and is used for clinical purposes. Blood Venipuncture / Unknown 01/04/2024 8:18 AM PST 01/04/2024 10:20 AM PST Narrative [facility] - 01/10/2024 3:05 PM PDT Performing Organization Information: ?Site ID: [id number] ?Name: [facility]/DALILA Port[facility] ?Address: [address] [place] [phone] ?Director: CHRISTIE MOREL MD,PHD,NICK us Petrona Felix MD LAB BLOOD ORDERA BLES Final Result [facility] [address] [place] [phone], [facility] REFERENCE LAB [facility] [place] [address] [place] [address] * Vitamin D, Deficiency Screen (25-Hydroxy) (12/20/2023 10:16 AM PST) Only the most recent of2 resultswithin the time period is included. [facility] 25-Hydroxy D, Total 32 30 - 100 ng/mL 12/20/2023 10:46 PM [facility] REFERENCE LAB [facility] Comment: Vitamin D Status ? 25-OH Vitamin D: Deficiency: ?<20 ng/mL Insufficiency: ? 20 - 29 ng/mL Optimal: ? > or = 30 ng/mL For 25-OH Vitamin D testing on patients on D2-supplementation and patients for whom quantitation of D2 and D3 fractions is required, the QuestAssureD(TM) 25-OH VIT D, (D2,D3), LC/MS/MS is recommended: order code 04997 (patients >2yrs). See Note 1 Note 1 For additional information, please refer to http://education.[employer]/faq/CVW354 (This link is being provided for informational/ educational purposes only.) Blood Venipuncture / Unknown 12/20/2023 10:16 AM PST 12/20/2023 11:13 AM PST Narrative [email or web address] - 12/20/2023 10:46 PM PST Performing Organization Information: ?Site ID: [id number] ?Name: [email or web address] ?Address: [address] [place] [address] ?Director: HAYLEE SYLVESTER MD Petrona Felix MD LAB BLOOD ORDERA BLES Final Result Performing Organization Address City/[facility] Co de Phone Number [facility]FERENCE [email or web address] [address] [place] [phone], [place] * PSA, Screen (12/20/2023 10:16 AM PST) Only the most recent of2 resultswithin the time period is included. PSA, Total 1.15 < OR = 4.00 ng/mL 12/20/2023 10:46 PM PST [facility] Comment: The total PSA value from this assay system is standardized against the WHO standard. The test result will be approximately 20% lower when compared to the equimolar-standardized total PSA (Dejon Osage). Comparison of serial PSA results should be [...] 12/20/2023 11:13 AM PST Narrative [facility] - 12/20/2023 10:46 PM PST Performing Organization Information: ?Site ID: [id number] ?Name: [email or web address] ?Address: [address] [place] [phone] ?Director: HAYLEE SYLVESTER MD Petrona Felix MD LAB BLOOD ORDERA BLES Final Result Performing Organization Address City/[facility]/ZIP Co de Phone Number REFERENCE LAB [facility] [address] [place] [phone], [place] * Culture, Urine (12/20/2023 10:16 AM PST) Only the most recent of2 resultswithin the time period is included. Pathologist [facility] Urine Culture, Routine SEE NOTE 12/21/2023 8:45 PM PST REFER[facility] Comment: ??CULTURE, URINE, ROUTINE ?Micro Number: ?[id number] ??Test Status: ? Final ??Specimen Source: ?? [...] 12/20/2023 11:52 AM PST Narrative REFERENCE LAB [facility] - 12/21/2023 8:45 PM PST Performing Organization Information: ?Site ID: EN ?Name: [facility] ?Address: [address] [place] [phone] ?Director: HAYLEE SYLVESTER MD Petrona Felix MD MICROBIOLOGY - G ENERAL ORDERABLES Final Result [facility]FERENCE LAB [facility] [address] [place] [phone], [place] * TSH (12/20/2023 10:16 AM PST) Only the most recent of2 resultswithin the time period is included. TSH 3.63 0.40 - 4.50 mIU/L 12/20/2023 10:46 PM PST [facility] Blood Venipuncture / Unknown 12/20/2023 10:16 AM PST 12/20/2023 11:13 AM PST Narrative [facility] - 12/20/2023 10:46 PM PST Performing Organization Information: ?Site ID: [id number] ?Name: [facility] ?Address: [address] [place] [address] ?Director: HAYLEE SYLVESTER MD Petrona Felix MD LAB BLOOD ORDERA BLES Final Result REFERENCE [facility] [address] [place] [address] * HIV AG/AB, 4th Gen, Reflex (12/20/2023 10:15 AM PST) [facility] HIV 1/2 Ab and P24 Ag NON-REACT FARSHAD NON-REACT FARSHAD 12/22/2023 6:49 PM PST REFERENCE [facility] Comment: HIV-1 antigen and HIV-1/HIV-2 antibodies [...] ?? For additional information please refer to http://education.[employer]/faq/VAE394 (This link is being provided for informational/ educational purposes only.) The performance of this assay has not been clinically validated in patients less than 2 years old. Blood Venipuncture / Unknown 12/20/2023 10:15 AM PST 12/20/2023 11:13 AM PST Narrative REFERENCE LAB [facility] - 12/22/2023 6:49 PM PST Performing Organization Information: ?Site ID: EN ?Name: [facility] ?Address: [address] [place] [phone] ?Director: HAYLEE SYLVESTER MD Petrona Felix MD LAB BLOOD ORDERA BLES Final Result REFERENCE LAB [facility] [address] [place] [phone] [place] [address] * (ABNORMAL) Lipid Panel (12/20/2023 10:15 AM PST) Only the most recent of2 resultswithin the time period is included. [facility] Cholesterol 274(H) <200 mg/dL 12/21/2023 12:03 AM PST REFER[facility] HDL Cholesterol 70 > OR = 40 mg/dL 12/21/2023 12:03 AM [facility] REFERENCE LAB [facility] Triglycerides 120 <150 mg/dL 12/21/2023 12:03 AM [facility] LDL, Calculated 179(H) mg/dL (calc) 12/21/2023 12:03 AM [facility] REFERENCE LAB [facility] Comment: Reference range: <100 Desirable range <100 mg/dL for primary prevention; ?? <70 mg/dL for patients with CHD or diabetic patients with > or = 2 CHD risk factors. LDL-C is now calculated using the Patty calculation, which is a validated novel method providing better accuracy than the Friedewald equation in the estimation of LDL-C. Rich SS et al. RAFAELA. 2013;310(19): 5679-9366 (http://education.[employer]/faq/ZJA135) Chol/HDL Ratio 3.9 <5.0 (calc) 12/21/2023 12:03 AM [facility] REFERENCE LAB [facility] Non-HDL Cholesterol 204(H) <130 mg/dL (calc) 12/21/2023 12:03 AM PST RE[facility]ENCE [facility] Comment: For patients with diabetes plus 1 major ASCVD risk factor, treating to a non-HDL-C goal of <100 mg/dL (LDL-C of <70 mg/dL) is considered a therapeutic option. Blood Venipuncture / Unknown 12/20/2023 10:15 AM PST 12/20/2023 11:13 AM PST Narrative REFER[facility] - 12/21/2023 12:03 AM PST Performing Organization Information: ?Site ID: [id number] ?Name: [facility] ?Address: [address] [place] [phone] ?Director: HAYLEE SYLVESTER MD Petrona Felix MD LAB BLOOD ORDERA BLES Final Result REFER[facility] [address] [place] [phone], [place] * Urinalysis With Microscopic (12/20/2023 10:15 AM [facility]) Only the most recent of2 resultswithin the time period is included. Color, UA YELLOW YELLOW 12/20/2023 8:38 PM PST [facility] Clarity, Urine CLEAR CLEAR 12/20/2023 8:38 PM PST [facility] Specific [place], Urine 1.012 1.001 - 1.035 12/20/2023 8:38 PM PST [facility] pH, Urine 7.0 5.0 - 8.0 12/20/2023 8:38 PM PST [facility] Glucose, UA NEGATIVE NEGATIVE 12/20/2023 8:38 PM PST [facility] Bilirubin, UA NEGATIVE NEGATIVE 12/20/2023 8:38 PM PST [facility] Ketones, UA NEGATIVE NEGATIVE 12/20/2023 8:38 PM PST RE[facility] Blood, UA NEGATIVE NEGATIVE 12/20/2023 8:38 PM PST [facility] Protein, UA NEGATIVE NEGATIVE 12/20/2023 8:38 PM PST REFERENCE LAB [facility] Nitrite, UA NEGATIVE NEGATIVE 12/20/2023 8:38 PM PST REFER[facility] Leukocyte esterase, UA NEGATIVE NEGATIVE 12/20/2023 8:38 PM PST RE[facility] WBC, UA NONE SEEN < OR = 5 /HPF 12/20/2023 8:38 PM PST REFER[facility] LAB [facility] RBC, UA NONE SEEN < OR = 2 /HPF 12/20/2023 8:38 PM PST REFER[facility] Squamous epithelial, UA NONE SEEN < OR = 5 /HPF 12/20/2023 8:38 PM PST REFER[facility] LAB [facility] Bacteria, UA NONE SEEN NONE SEEN /HPF 12/20/2023 8:38 PM PST [facility] Hyaline cast, UA NONE SEEN NONE SEEN /LPF 12/20/2023 8:38 PM PST REFER[facility] LAB [facility] Note: See Below 12/20/2023 8:38 PM PST REFER[facility] LAB [facility] Comment: This urine was analyzed for the presence of WBC, RBC, bacteria, casts, and other formed elements. Only those elements seen were reported. Urine Collection / Unknown 12/20/2023 10:15 AM PST 12/20/2023 11:51 AM PST Narrative REFERENCE LAB [facility] - 12/20/2023 8:38 PM PST Performing Organization Information: ?Site ID: [id number] ?Name: [facility] ?Address: [address] [place] [phone] ?Director: HAYLEE SYLVESTER MD Petrona Felix MD URINE ORDERABLES Final Result REFER[facility] LAB [facility] [address] [place] [phone], [facility] * CBC with Differential (12/20/2023 10:15 AM PST) Only the most recent of2 resultswithin the time period is included. [facility] Signature WBC 5.5 3.8 - 10.8 Thousand/u L 12/21/2023 12:24 AM PST [facility] Red Blood Cells 4.70 4.20 - 5.80 Million/uL 12/21/2023 12:24 AM PST [facility] Hemoglobin 14.8 13.2 - 17.1 g/dL 12/21/2023 12:24 AM PST [facility] Hct 42.9 38.5 - 50.0 % 12/21/2023 12:24 AM PST [facility] MCV 91.3 80.0 - 100.0 fL 12/21/2023 12:24 AM PST [facility] MCH 31.5 27.0 - 33.0 pg 12/21/2023 12:24 AM PST [facility] MCHC 34.5 32.0 - 36.0 g/dL 12/21/2023 12:24 AM PST [facility] RDW 12.7 11.0 - 15.0 % 12/21/2023 12:24 AM PST [facility] Platelet Count 284 140 - 400 Thousand/u L 12/21/2023 12:24 AM PST [facility] MPV 10.5 7.5 - 12.5 fL 12/21/2023 12:24 AM PST [facility] Absolute Neutrophils 3031 1500 - 7800 cells/uL 12/21/2023 12:24 AM PST [facility] Absolute Lymphocytes 1733 850 - 3900 cells/uL 12/21/2023 12:24 AM PST [facility] Absolute Monocytes 550 200 - 950 cells/uL 12/21/2023 12:24 AM PST [facility] Absolute Eosinophils 138 15 - 500 cells/uL 12/21/2023 12:24 AM PST [facility] Absolute Basophils 50 0 - 200 cells/uL 12/21/2023 12:24 AM PST [facility] % Neutrophils 55.1 % 12/21/2023 12:24 AM PST [facility] % Lymphocytes 31.5 % 12/21/2023 12:24 AM PST [facility] % Monocytes 10.0 % 12/21/2023 12:24 AM PST [facility] % Eosinophils 2.5 % 12/21/2023 12:24 AM PST [facility] % Basophils 0.9 % 12/21/2023 12:24 AM PST [facility] Blood Venipuncture / Unknown 12/20/2023 10:15 AM PST 12/20/2023 11:13 AM PST Narrative REFER[facility] - 12/21/2023 12:24 AM PST Performing Organization Information: ?Site ID: EN ?Name: [facility] ?Address: [address] [place] [address] ?Director: HAYLEE SYLVESTER MD Performing Organization Information: ?Site ID: EN ?Name: [facility] ?Address: [address] [place] [address] ?Director: HAYLEE SYLVESTER MD Petrona Felix MD LAB BLOOD ORDERA BLES Edited Result - Final [facility] [address] [place] [address] * Phosphorus (12/20/2023 10:15 AM PST) Phosphorus 2.7 2.5 - 4.5 mg/dL 12/21/2023 12:03 AM PST [facility] Blood Venipuncture / Unknown 12/20/2023 10:15 AM PST 12/20/2023 11:13 AM PST Narrative [facility] [facility] - 12/21/2023 12:03 AM PST Performing Organization Information: ?Site ID: EN ?Name: [facility] ?Address: [address] [place] [address] ?Director: HAYLEE SYLVESTER MD Petrona Felix MD LAB BLOOD ORDERA BLES Final Result REFERENCE LAB [facility] [address] [place] [phone] * Hemoglobin A1C (12/20/2023 10:15 AM PST) Only the most recent of2 resultswithin the time period is included. Hemoglobin A1c 5.5 <5.7 % of total Hgb 12/21/2023 12:24 AM PST [facility] Comment: For the purpose of screening for the presence of diabetes: <5.7% ? Consistent with the absence of diabetes 5.7-6.4% ?Consistent with increased risk for diabetes ?(prediabetes) > or =6.5% ??Consistent with diabetes This assay result is consistent with a decreased risk of diabetes. Currently, no consensus exists regarding use of hemoglobin A1c for diagnosis of diabetes in children. According to [place] Diabetes Association (ADA) guidelines, hemoglobin A1c <7.0% represents optimal control in non- diabetic patients. Different metrics may apply to specific patient populations. Standards of Medical Care in Diabetes(ADA). ?? Estimated Average Glucose 111 mg/dL 12/21/2023 12:24 AM PST REFERENCE LAB [facility] Estimated Average Glucose 6.2 mmol/L 12/21/2023 12:24 AM PST REFERENCE LAB [facility] [employer] [facility] Comment: ? HbA1c performed on David platform. Effective 12/19/23 a change in test platforms may have shifted HbA1c results compared to historical results. Blood Venipuncture / Unknown 12/20/2023 10:15 AM PST 12/20/2023 11:13 AM PST Narrative REFER[facility] LAB [facility] - 12/21/2023 12:24 AM PST Performing Organization Information: ?Site ID: EN ?Name: [facility] ?Address: [address] [place] [phone] ?Director: HAYLEE SYLVESTER MD Petrona Felix MD LAB BLOOD ORDERA BLES Final Result REFERENCE LAB [facility] [address] [place] [phone] * Hepatic Function Panel (12/20/2023 10:15 AM PST) Only the most recent of2 resultswithin the time period is included. Pathologist [facility] Protein, Total 6.8 6.1 - 8.1 g/dL 12/21/2023 12:03 AM PST REFERENCE LAB [facility] Albumin 4.4 3.6 - 5.1 g/dL 12/21/2023 12:03 AM PST RE[facility] Globulin, Total 2.4 1.9 - 3.7 g/dL (calc) 12/21/2023 12:03 AM PST RE[facility] A/G Ratio 1.8 1.0 - 2.5 (calc) 12/21/2023 12:03 AM PST [facility] BILIRUBIN, TOTAL 0.7 0.2 - 1.2 mg/dL 12/21/2023 12:03 AM PST RE[facility] Bilirubin Direct 0.1 < OR = 0.2 mg/dL 12/21/2023 12:03 AM PST [facility] Bilirubin Indirect 0.6 0.2 - 1.2 mg/dL (calc) 12/21/2023 12:03 AM PST RE[facility] ALK PHOS 78 35 - 144 U/L 12/21/2023 12:03 AM PST [facility] AST (SGOT) (REF) 24 10 - 35 U/L 12/21/2023 12:03 AM PST [facility] ALT (SGPT) (REF) 25 9 - 46 U/L 12/21/2023 12:03 AM [facility] REFERENCE LAB [facility] Blood Venipuncture / Unknown 12/20/2023 10:15 AM PST 12/20/2023 11:13 AM PST Narrative RE[facility] LAB [facility] - 12/21/2023 12:03 AM PST Performing Organization Information: ?Site ID: EN ?Name: [facility] ?Address: [address] [place] [address] ?Director: HAYLEE SYLVESTER MD Petrona Felix MD LAB BLOOD ORDERA BLES Final Result REFERENCE [facility] [address] [place] [address] * Basic Metabolic Panel (12/20/2023 10:15 AM [facility]) Only the most recent of2 resultswithin the time period is included. Glucose 98 65 - 99 mg/dL 12/21/2023 12:03 AM [facility] REFERENCE LAB [facility] Comment: ? Fasting reference interval BUN 10 7 - 25 mg/dL 12/21/2023 12:03 AM PST RE[facility] Creatinine 1.10 0.70 - 1.30 mg/dL 12/21/2023 12:03 AM [facility] REFERENCE LAB [facility] eGFR 81 > OR = 60 mL/min/1. 73m2 12/21/2023 12:03 AM [facility] REFERENCE LAB [facility] BUN/Creatinine Ratio SEE NOTE: (calc) 12/21/2023 12:03 AM [facility] REFERENCE LAB [facility] Comment: ?? Not Reported: BUN and Creatinine are within ?? reference range. ? Sodium 138 135 - 146 mmol/L 12/21/2023 12:03 AM [facility] REFERENCE LAB [facility] Potassium 4.4 3.5 - 5.3 mmol/L 12/21/2023 12:03 AM PST RE[facility] LAB [facility] Chloride 102 98 - 110 mmol/L 12/21/2023 12:03 AM PST REFERENCE LAB [facility] Carbon dioxide 31 20 - 32 mmol/L 12/21/2023 12:03 AM PST RE[facility] Calcium 9.5 8.6 - 10.3 mg/dL 12/21/2023 12:03 AM PST [facility] Blood Venipuncture / Unknown 12/20/2023 10:15 AM PST 12/20/2023 11:13 AM PST Narrative [facility] - 12/21/2023 12:03 AM PST Performing Organization Information: ?Site ID: EN ?Name: [facility] ?Address: [address] [place] [phone] ?Director: HAYLEE SYLVESTER MD Petrona Felix MD LAB BLOOD ORDERA BLES Final Result RE[facility] [address] [place] [phone], [place] * (ABNORMAL) Allergens, Panel, Resp Region XIII (10/07/2022 8:33 AM PST) D. Pteronyssinus IgE <0.10 kU/L 07/2022 6:39 PM PST RE[facility] Allergen Class, Dermatophagoides pteronyssinus 0 10/08/2022 6:39 PM PST REFERENCE LAB [facility] D. Farinae IgE <0.10 kU/L 10/08/2022 6:39 PM PST RE[facility] Allergen Class, Dermatophagoides farinae 0 10/08/2022 6:39 PM PST RE[facility] Penicillium notatum IgE <0.10 kU/L 10/08/2022 6:39 PM PST RE[facility] Allergen Class, Penicillium notatum 0 10/08/2022 6:39 PM PST [facility] Allergen Cladosporium herbarum IgE <0.10 kU/L 10/08/2022 6:39 PM PST [facility] Allergen Class, Cladosporium herbarium 0 10/08/2022 6:39 PM PST [facility] Aspergillus fumigatus IgE <0.10 kU/L 10/08/2022 6:39 PM PST [facility] Allergen Class, Aspergillus fumigatus 0 10/08/2022 6:39 PM PST [facility] ALLERGEN ALTERNARIA ALTERNATA IGE <0.10 kU/L 10/08/2022 6:39 PM PST [facility] Allergen Class, Alternaria alternata 0 10/08/2022 6:39 PM PST [facility] Cat Dander IgE <0.10 kU/L 10/08/2022 6:39 PM PST [facility] Allergen Class, Cat Dander 0 10/08/2022 6:39 PM PST [facility] Dog Dander IgE <0.10 kU/L 10/08/2022 6:39 PM PST [facility] Allergen Class, Dog Dander 0 10/08/2022 6:39 PM PST [facility] Cockroach,Ige <0.10 kU/L 10/08/2022 6:39 PM PST [facility] Allergen Class, Cockroach 0 10/08/2022 6:39 PM PST [facility] T217 Neeses, Red <0.10 kU/L 6:39 PM PST [facility] Allergen Class, Neeses 0 10/08/2022 6:39 PM PST [facility] Allergen [place] Tree IgE <0.10 kU/L 10/08/2022 6:39 PM PST [facility] Allergen Class, [place] 0 10/08/2022 6:39 PM PST [facility] Wentworth Tree 0.70(H) kU/L 10/08/2022 6:39 PM PST [facility] Allergen Class, [place] Tree 2 10/08/2022 6:39 PM PST [facility] [place] Tree IgE <0.10 kU/L 6:39 PM PST [facility] Allergen Class, [place] Tree 0 10/08/2022 6:39 PM PST [facility] Mccurtain Tree IgE <0.10 kU/L 10/08 6:39 PM PST [facility] Allergen Class, [place] 0 10/08/2022 6:39 PM PST [facility] [place] Tree IgE <0.10 kU/L 10/08/2022 6:39 PM PST [facility] Allergen Class, [place] 0 10/08 6:39 PM PST [facility] Elm Tree IgE <0.10 kU/L 10/08/2022 6:39 PM PST [facility] Allergen Class, Elm 0 10/08 6:39 PM PST [facility] Allergen [place] Tree IgE <0.10 kU/L 10/08/2022 6:39 PM PST [facility] Allergen Class, White [place] 0 10/08/2022 6:39 PM PST [facility] Bermuda Grass <0.10 kU/L 10/08/2022 6:39 PM PST [facility] Allergen Class, [place] Grass 0 10/08/2022 6:39 PM PST [facility] Teofilo Grass IgE <0.10 kU/L 022 6:39 PM PST [facility] Allergen Class, Teofilo Grass 0 10/08/2022 6:39 PM PST [facility] Allergen Calin Grass IgE <0.10 kU/L 10/08/2022 6:39 PM PST [facility] Allergen Class, Calin Grass 0 10/08/2022 6:39 PM PST [facility] Common Ragweed IgE <0.10 kU/L 2021 6:39 PM PST [facility] Allergen Class, Common Ragweed 0 10/08/2022 6:39 PM PST [facility] MUGWORT <0.10 kU/L 10/08/2022 6:39 PM PST [facility] Allergen Class, Mugwort 0 10/08/2022 6:39 PM PST [facility] ALLERGEN THISTLE GERMAN IGE 0.32(H) kU/L 10/08/2022 6:39 PM PST [facility] Allergen Class, Swazi Thistle 0/1 10/08/2022 6:39 PM PST [facility] Rough Pigweed IgE <0.10 kU/L 022 6:39 PM PST [facility] Allergen Class, Rough Pigweed 0 10/08/2022 6:39 PM PST [facility] Allergen Mouse Urine IgE <0.10 kU/L 10/08/2022 6:39 PM PST [facility] Allergen Class, Mouse Urine Protein 0 10/08/2022 6:39 PM PST [facility] Immunoglobulin IgE 27 <SE=784 kU/L 10/08/2022 6:39 PM PST [facility] Interpretation See Below 10/08/2022 6:39 PM PST [facility] Comment: Specific ?Level of Allergen [...] analytical performance characteristics have been determined by [employer]. It has not been cleared or approved by the U.S. Food and Drug Administration. This assay has been validated pursuant to the CLIA regulations and is used for clinical purposes. Blood Venipuncture / Unknown 10/07/2022 8:33 AM PST 10/07/2022 12:55 PM PST Narrative REFERENCE LAB [employer] [facility] - 10/08/2022 6:39 PM PST Performing Organization Information: ?Site ID: EN ?Name: [email or web address] ?Address: [address] [place] [phone] ?Director: HAYLEE SYLVESTER MD Petrona Felix MD LAB BLOOD ORDERA BLES Final Result REFERENCE LAB [facility] [address] [place] [phone], [facility] * (ABNORMAL) Allergen Panel, Adult Food (10/07/2022 8:33 AM PST) [facility] Egg White IgE <0.10 kU/L 10/08/2022 6:33 PM PST [facility] Allergen Class, Egg White 0 10/08/2022 6:33 PM PST [facility] Peanut IgE <0.10 kU/L 10/08/2022 6:33 PM PST [facility] Allergen Class, Peanut 0 10/08/2022 6:33 PM PST [facility] Wheat IgE <0.10 kU/L 10/08/2022 6:33 PM PST [facility] Allergen Class, Wheat 0 10/08/2022 6:33 PM PST [facility] WALNUT-FOOD IGE <0.10 kU/L 6:33 PM PST [facility] Allergen Class, [place]-Food 0 10/08/2022 6:33 PM PST [facility] Codfish IgE <0.10 kU/L 10/08/2022 6:33 PM PST [facility] Allergen Class, Codfish 0 10/08/2022 6:33 PM PST [facility] Cow's Milk IgE <0.10 kU/L 10/08/2022 6:33 PM PST [facility] Allergen Class, Cow's Milk 0 10/08/2022 6:33 PM PST [facility] Soybean IgE <0.10 kU/L 10/08/2022 6:33 PM PST [facility] Allergen Class, Soybean 0 10/08/2022 6:33 PM PST [facility] Shrimp IgE <0.10 kU/L 10/08/2022 6:33 PM PST [facility] Allergen Class, Shrimp 0 10/08/2022 6:33 PM PST [facility] Scallop IgE <0.10 kU/L 10/08/2022 6:33 PM PST [facility] Allergen Class, Scallop 0 10/08/2022 6:33 PM PST [facility] Allergen Sesame Seed IgE <0.10 kU/L 10/08/2022 6:33 PM PST [facility] Allergen Class, Sesame Seed 0 10/08/2022 6:33 PM PST [facility] Allergen, Hazelnut IgE 0.12(H) kU/L 10/08/2022 6:33 PM PST [facility] Allergen Class, Hazelnut 0/1 10/08/2022 6:33 PM PST [facility] CASHEW IGE <0.10 kU/L 10/08/2022 6:33 PM PST [facility] Allergen Class, Cashew Nut 0 10/08/2022 6:33 PM PST [facility] ALMONDS <0.10 kU/L 10/08/2022 6:33 PM PST [facility] Allergen Class, Comfrey 0 10/08/2022 6:33 PM PST [facility] Allergen [place] IgE <0.10 kU/L 10/08 6:33 PM PST [facility] Allergen Class, [place] 0 10/08/2022 6:33 PM PST [facility] Tuna IgE <0.10 kU/L 10/08/2022 6:33 PM PST [facility] Allergen Class, Tuna 0 10/08/2022 6:33 PM PST [facility] Interpretation See Below 10/08/2022 6:33 PM PST [facility] Comment: Specific ?Level of Allergen [...] analytical performance characteristics have been determined by [employer]. It has not been cleared or approved by the U.S. Food and Drug Administration. This assay has been validated pursuant to the CLIA regulations and is used for clinical purposes. Blood Venipuncture / Unknown 10/07/2022 8:33 AM PST 10/07/2022 12:55 PM PST Narrative REFERENCE LAB [employer] - 10/08/2022 6:33 PM PST Performing Organization Information: ?Site ID: EN ?Name: [email or web address] ?Address: [address] [place] [phone] ?Director: HAYLEE SYLVESTER MD Petrona Felix MD LAB BLOOD ORDERA BLES Final Result Performing Organization Address [facility]/ZIP Co de Phone Number REFERENCE LAB [facility] [address] [place] [address] [phone] [place] [address] * Hepatitis C Ab (10/07/2022 8:33 AM PST) Hepatitis C Ab NON-REACT FARSHAD NON-REACT FARSHAD 10/08/2022 4:44 PM PST [facility] Signal/Cutoff 0.07 <1.00 10/08/2022 4:44 PM PST [facility] Comment: HCV antibody was non-reactive. There is no laboratory evidence of HCV infection. In most cases, no further action is required. However, if recent HCV exposure is suspected, a test for HCV RNA (test code 50429) is suggested. For additional information please refer to http://education.[employer]/faq/QIE11u8 (This link is being provided for informational/ educational purposes only.) Blood Venipuncture / Unknown 10/07/2022 8:33 AM PST 10/07/2022 12:55 PM PST Narrative [facility] - 10/08/2022 4:44 PM PST Performing Organization Information: ?Site ID: EN ?Name: [employer] [facility] ?Address: [address] [place] [phone] ?Director: HAYLEE SYLVESTER MD Petrona Felix MD LAB BLOOD ORDERA BLES Final Result [facility] [address] [place] [phone] [place] [address] Visit Diagnoses Diagnosis Start Date Depression, unspecified depression type 10/01/2022 Annual physical exam Routine general medical examination at a health care facility 10/01/2022 Postnasal drip 10/01/2022 Deviated septum Deviated nasal septum 10/01/2022 Snoring Other dyspnea and respiratory abnormality 10/01/2022 Hypercholesterolemia Pure hypercholesterolemia 10/19/2022 Vitamin D deficiency Unspecified vitamin D deficiency 10/19/2022 Positive allergy test 10/19/2022 Annual physical exam Routine general medical examination at a health care facility 12/20/2023 Vitamin D deficiency Unspecified vitamin D deficiency 12/20/2023 Hypercholesterolemia Pure hypercholesterolemia 12/20/2023 Chronic cough Cough 12/20/2023 Numerous moles Benign neoplasm of skin, site unspecified 01/04/2024 Hypercholesterolemia Pure hypercholesterolemia 01/04/2024 Vitamin D deficiency Unspecified vitamin D deficiency 01/04/2024 COVID-19 virus infection 06/05/2024 Fever, unspecified fever cause 06/05/2024 Sneezing Other symptoms involving head and neck 06/05/2024 Care Teams [employer] Relationship Specialty Start Date End Date Petrona Felix MD [address] [place] [address] PCP - General Family Medicine 10/01/22
== END 2024-10-30 07:51 | disposition home or self-care (01) ==
PROVIDERS: Emergency Provider Emergency Medicine
DX: I95.1 Orthostatic hypotension (principal); J10.1 Influenza due to other identified influenza virus with other respiratory manifestations; Z20.822 Contact with and (suspected) exposure to COVID-19
CPT/HCPCS: 36415; 71045; 80053; 85025; 87637; 93005; 96361; 96374; 99284; J1885; J7030